=== PATIENT | female | born 1985 | race Hispanic/Latino ===

== ENCOUNTER 2021-04-21 23:27 | Emergency (ER) | payer SELFPAY ==
--- OUTSIDE RECORDS SUMMARY | 2021-04-21 23:31 | XMS REPORT | Continuity of Care Document ---
:1985 Author Organization [facility] t Address [address] [place] [address] Care Team Providers Name Role Phone Pcp, Does Not Have A Primary Care Physician Ebrahim LATHE MACHINIST Attending Clinician YASMIN Attending Clinician Unavailable Green LATHE MACHINIST Attending Clinician Cacace LATHE MACHINIST, J Attending Clinician Problems Condition Condition Condition Status Onset Resolution Last Treating Co mments Source Name Details Category Date Date Treatment Clinician Date Encounter Encounter Disease Active 2013-04 Overview: Univers for for -10 Formattin ity of routine routine 00:00: g of this [place] gynecologi gynecologi 00 note Me dical yazmin yazmin might be Branch examinatio examinatio different n n from the original. 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 Acid Acid Disease Active 2013-04 Univers reflux reflux 1-10 ity of 00:00: [place] 00 [facility] Branch Disease Active 2013-04 U nivers mood mood 0-07 ity of disturbanc disturbanc 00:[place] e [place] 00 Medical Branch Tubal Tubal Disease Active 2013-04 Univers ligation ligation 0-07 ity of status status 00:00: [place] 00 Medical Branch Wound Wound Disease Active Univers dehiscence dehiscence 9-19 it y of , , 00:[place] Morbid Morbid Disease Active Univers obesity obesity 5-10 ity of 00:00: [place] 00 [facility] Allergies, Adverse Reactions, Alerts Allergy Allergy Status Severity Reaction(s) Onset Inactive Treating Comm ents Source Name Type Date Date Clinician NO KNOWN Drug Active Univers ALLERGIE Class ity of S [facility] Social History Social Habit Start Date Stop Date Quantity Comments Source Exposure to Not sure [facility] SARS-CoV-2 [facility] (event) Branch Alcohol intake 2021-02-16 2021-02-16 Current University of 00:00:00 00:00:00 non-drinker of [facility] alcohol [place] (finding) Tobacco use and 2018-07-14 2018-07-14 Never used Universit y of exposure 00:00:00 00:00:00 [facility] Sex [birth year] Universit y of 00:00:00 00:00:00 [facility] Smoking Status Start Date Stop Date Source Never smoker [facility] Medications Ordered Filled Start Stop Current Ordering Indication Dosage Frequency Signature Comments Components Source Medication Medication Date Date Medication? Clinician (SIG) Name Name cetirizine 2020-04- Yes [id number] 10mg Take 1 Univers (ZYRTEC) 10 0-19 03- tablet by it y of mg tablet 00:00: 05:59 mouth [place] 00 :00 daily for Medical 30 days. Branch cetirizine 2020-04- Yes [id number] 10mg Take 1 Univers (ZYRTEC) 10 0- 11-28 tablet by it y of mg tablet 00:00: 05:59 mouth [place] 00 :00 daily for Medical 30 days. Branch cetirizine 2020-04- Yes [id number] 10mg Take 1 Univers (ZYRTEC) 10 0-28 11-28 tablet by it y of mg tablet 00:00: 05:59 mouth [place] 00 :00 daily for Medical 30 days. Branch codeine-gua 2020-04- Yes 10mL Take 10 mL Univers ifenesin 0-28 11-05 by mouth ity of 10-100 mg/5 00:00: 04:59 [place] 6 [place] mL oral 00 :00 (six) Medical solution hours as Branch needed for Cough for up to 7 days. Indication s: cough codeine-gua 2020-04- Yes 10mL Take 10 mL Univers ifenesin 0-28 11-05 by mouth ity of 10-100 mg/5 00:00: 04:59 every 6 [place] mL oral 00 :00 (six) Medical solution hours as Branch needed for Cough for up to 7 days. Indication s: cough NaCl 0.9% 2020- No 1000mL at 999 Uni vers (NS) bolus - 01-21 mL/hr, ity of infusion 19:45: 21:00 1,000 mL, Bob as 1,000 mL 00 :00 IV Medical Infusion, Branch ONCE, 1 dose, [facility] 05/12/20 at 1345, DREW benzonatate 0 Yes [id number] 100mg Take 1 Univers 100 mg 1-21 capsule by ity of capsule 00:00: mouth 3 [place] 00 (three) Medical times Branch daily as needed for Cough for up to 15 doses. methylPREDN 0 Yes [id number] Take by Univers ISolone -21 mouth ity of (MEDROL, 00:00: SEE-INSTRU Bob as ARCENIO,) 4 mg 00 CTIONS. Medica l tablets follow Branch package directions ibuprofen 0 Yes [id number] 800mg Take 1 U nivers 800 mg 1-21 tablet by ity of tablet 00:00: mouth [place] 00 every 8 Medical (eight) Branch hours as needed for Pain (scale 4-6) for up to 30 doses. benzonatate 0 Yes [id number] 100mg Take 1 Univers 100 mg 1-21 capsule by ity of capsule 00:00: mouth 3 [place] 00 (three) Medical times Branch daily as needed for Cough for up to 15 doses. methylPREDN 2020-0 Yes [id number] Take by Univers ISolone 1-21 mouth ity of (MEDROL, 00:00: SEE-INSTRU Bob as ARCENIO,) 4 mg 00 CTIONS. Medica l tablets follow Branch package directions ibuprofen 2020-0 Yes [id number] 800mg Take 1 U nivers 800 mg 1-21 tablet by ity of tablet 00:00: mouth [place] 00 every 8 Medical (eight) Branch hours as needed for Pain (scale 4-6) for up to 30 doses. benzonatate 0 Yes [id number] 100mg Take 1 Univers 100 mg 1-21 capsule by ity of capsule 00:00: mouth 3 [place] 00 (three) Medical times Branch daily as needed for Cough for up to 15 doses. methylPREDN 2020-0 Yes [id number] Take by Univers ISolone 1-21 mouth ity of (MEDROL, 00:00: SEE-INSTRU Bob as ARCENIO,) 4 mg 00 CTIONS. Medica l tablets follow Branch package directions ibuprofen 0 Yes [id number] 800mg Take 1 U nivers 800 mg 1-21 tablet by ity of tablet 00:00: mouth [place] 00 every 8 Medical (eight) Branch hours as needed for Pain (scale 4-6) for up to 30 doses. benzonatate Yes [id number] 100mg Take 1 Univers 100 mg 1-21 capsule by ity of capsule 00:00: mouth 3 [place] 00 (three) Medical times Branch daily as needed for Cough for up to 15 doses. methylPREDN 0 Yes [id number] Take by Univers ISolone 1-21 mouth ity of (MEDROL, 00:00: SEE-INSTRU Bbo as ARCENIO,) 4 mg 00 CTIONS. Medica l tablets follow Branch package directions ibuprofen 0 Yes [id number] 800mg Take 1 U nivers 800 mg 1-21 tablet by ity of tablet 00:00: mouth [place] 00 every 8 Medical (eight) Branch hours as needed for Pain (scale 4-6) for up to 30 doses. traMADOL Yes [id number] 50mg Take 1 Uni vers (ULTRAM) 50 3-25 tablet by ity of mg tablet 00:00: mouth [place] 00 every 6 Medical (six) Branch hours as needed for Pain (scale 7-10). ondansetron 2018- Yes [id number] 4mg Take 1 Univers (ZOFRAN) 4 3-25 tablet by ity of mg tablet 00:00: mouth [place] 00 every 8 Medical (eight) Branch hours as needed for Nausea and Vomiting (N/V). traMADOL 0 Yes [id number] 50mg Take 1 Uni vers (ULTRAM) 50 3-25 tablet by ity of mg tablet 00:00: mouth [place] 00 every 6 Medical (six) Branch hours as needed for Pain (scale 7-10). ondansetron 2019-0 Yes [id number] 4mg Take 1 Univers (ZOFRAN) 4 3-25 tablet by ity of mg tablet 00:00: mouth [place] 00 every 8 Medical (eight) Branch hours as needed for Nausea and Vomiting (N/V). traMADOL 2019-0 Yes [id number] 50mg Take 1 Uni vers (ULTRAM) 50 3-25 tablet by ity of mg tablet 00:00: mouth [place] 00 every 6 Medical (six) Branch hours as needed for Pain (scale 7-10). ondansetron 2018-0 Yes [id number] 4mg Take 1 Univers (ZOFRAN) 4 3-25 tablet by ity of mg tablet 00:00: mouth [place] 00 every 8 Medical (eight) Branch hours as needed for Nausea and Vomiting (N/V). traMADOL 2018-0 Yes [id number] 50mg Take 1 Uni vers (ULTRAM) 50 3-25 tablet by ity of mg tablet 00:00: mouth [place] 00 every 6 Medical (six) Branch hours as needed for Pain (scale 7-10). ondansetron 2018- Yes [id number] 4mg Take 1 Univers (ZOFRAN) 4 3-25 tablet by ity of mg tablet 00:00: mouth [place] 00 every 8 Medical (eight) Branch hours as needed for Nausea and Vomiting (N/V). meclizine 2018-0 Yes 25mg Take 1 Univer s 25 mg 1-16 tablet by ity of tablet 00:00: mouth [place] 00 every 6 Medical (six) Branch hours. meclizine 2018-0 Yes 25mg Take 1 Univer s 25 mg 1-16 tablet by ity of tablet 00:00: mouth [place] 00 every 6 Medical (six) Branch hours. meclizine 2018-0 Yes 25mg Take 1 Univer s 25 mg 1-16 tablet by ity of tablet 00:00: mouth [place] 00 every 6 Medical (six) Branch hours. meclizine 2018-0 Yes 25mg Take 1 Univer s 25 mg 1-16 tablet by ity of tablet 00:00: mouth [place] 00 every 6 Medical (six) Branch hours. traMADOL 2014-0 Yes 50mg Take 1 Tab Uni vers (ULTRAM) 50 9-19 by mouth ity of mg tablet 00:00: every 6 [place] 00 (six) Medical hours as Branch needed for Pain (scale 4-6). traMADOL 2014-0 Yes 50mg Take 1 Tab Uni vers (ULTRAM) 50 9-19 by mouth ity of mg tablet 00:00: every 6 [place] 00 (six) Medical hours as Branch needed for Pain (scale 4-6). traMADOL 2015-0 Yes 50mg Take 1 Tab Uni vers (ULTRAM) 50 9-19 by mouth ity of mg tablet 00:00: every 6 [place] 00 (six) Medical hours as Branch needed for Pain (scale 4-6). traMADOL 2014-0 Yes 50mg Take 1 Tab Uni vers (ULTRAM) 50 9-19 by mouth ity of mg tablet 00:00: every 6 [place] 00 (six) Medical hours as Branch needed for Pain (scale 4-6). Immunizations Ordered Filled Immunization Date Status Comments [facility] e Immunization Name Name MMR 2014-01-04 Completed University of 00:00:00 [facility] MMR 2014-01-04 Completed University of 00:00:00 [facility] MMR 2014-01-04 Completed University of 00:00:00 [facility] MMR 2014-01-04 Completed University of 00:00:00 [facility] Rho (d) Immune 2014-01-03 Completed University of Globulin 00:00:00 [facility] Rho (d) Immune 2014-01-03 Completed University of Globulin 00:00:00 [facility] Rho (d) Immune 2014-01-03 Completed University of Globulin 00:00:00 [facility] Rho (d) Immune 2014-01-03 Completed University of Globulin 00:00:00 [facility] TDAP 2013-10-22 Completed University of 00:00:00 [facility] TDAP 2013-10-22 Completed University of 00:00:00 [facility] TDAP 2013-10-22 Completed University of 00:00:00 [facility] TDAP 2013-10-22 Completed University of 00:00:00 [facility] Influenza Virus 2013-05-29 Completed Universit y of Vaccine (3+ yrs) 00:00:00 [facility] Influenza Virus 2013-05-29 Completed Universit y of Vaccine (3+ yrs) 00:00:00 [facility] Influenza Virus 2013-05-29 Completed Universit y of Vaccine (3+ yrs) 00:00:00 [facility] Influenza Virus 2013-05-29 Completed Universit y of Vaccine (3+ yrs) 00:00:00 [facility] TDAP 2012-08-29 Completed University of 00:00:00 [facility] TDAP 2012-08-29 Completed University of 00:00:00 [facility] TDAP 2012-08-29 Completed University of 00:00:00 [facility] TDAP 2012-08-29 Completed University of 00:00:00 [facility] Influenza Virus 2012-02-03 Completed Universit y of Vaccine 00:00:00 [facility] MMR 2012-02-03 Completed University of 00:00:00 [facility] Influenza Virus 2012-02-03 Completed Universit y of Vaccine 00:00:00 [facility] MMR 2012-02-03 Completed University of 00:00:00 [facility] Influenza Virus 2012-02-03 Completed Universit y of Vaccine 00:00:00 [facility] MMR 2012-02-03 Completed University of 00:00:00 [facility] Influenza Virus 2012-02-03 Completed Universit y of Vaccine 00:00:00 [facility] MMR 2012-02-03 Completed University of 00:00:00 [facility] Rho (d) Immune 2012-02-01 Completed University of Globulin 00:00:00 [facility] Rho (d) Immune 2012-02-01 Completed University of Globulin 00:00:00 [facility] Rho (d) Immune 2012-02-01 Completed University of Globulin 00:00:00 [facility] Rho (d) Immune 2012-02-01 Completed University of Globulin 00:00:00 [facility] Vital Signs Vital Name Observation Time Observation Value Comments Source Systolic blood 2021-02-17 01:22:00 122 mm[Hg] Univer sity of pressure [facility] Diastolic blood 2021-02-17 01:22:00 82 mm[Hg] Unive rsity of pressure [facility] Heart rate 2021-02-17 01:22:00 84 /min [facility] Body temperature 2021-02-17 01:22:00 37 Jesica [facility] Res[facility] 2021-02-17 01:22:00 18 /min [facility] Body height 2021-02-17 01:22:00 154.9 cm [facility] Body weight 2021-02-17 01:22:00 127.007 kg [facility] BMI 2021-02-17 01:22:00 52.91 kg/m2 [facility] Oxygen saturation in 2021-02-17 01:22:00 97 /min [facility] Arterial blood by [facility] Pulse oximetry Branch Systolic blood 2020-05-12 22:30:00 127 mm[Hg] Univer sity of pressure [facility] Diastolic blood 2020-05-12 22:30:00 62 mm[Hg] [facility] Heart rate 2020-05-12 22:30:00 68 /min [facility] Respiratory rate 2020-05-12 22:30:00 18 /min [facility] Oxygen saturation in 2020-05-12 22:30:00 100 /min [facility] Arterial blood by [facility] Pulse oximetry [place] Body temperature 2020-05-12 19:01:00 37.28 Jesica [facility] Body weight 2020-05-12 19:01:00 127.007 kg [facility] BMI 2020-05-12 19:01:00 52.91 kg/m2 [facility] Procedures Procedure Date / Time Performed Performing Clinician Sour e XR CHEST 2 2021-02-17 01:40:40 [facility] o f [facility] POCT TEST 2020-05-12 20:28:00 Dimas Lora [facility] XR CHEST 1 2020-05-12 20:27:54 Adriana Bowling [facility] TROPONIN I 2020-05-12 20:22:00 Adriana Bowling [facility] HEPATIC FUNCTION PANEL 2020-05-12 20:22:00 Adriana Bowling [facility] ([id number]) [facility] (ALB,T.PRO,BILI T,BU/BC,ALT,AST,ALK PHOS) BASIC METABOLIC PANEL 2020-05-12 20:22:00 Adriana Bowling [facility] (NA, K, CL, CO2, Medical Branch GLUCOSE, BUN, CREATININE, CA) CBC WITH DIFF 2020-05-12 20:22:00 Adriana Bowling [facility] URINALYSIS 2020-05-12 20:22:00 Adriana Bowling [facility] CONSENT/REFUSAL FOR 2020-05-12 18:46:55 [facility] Unassigned, [facility] AND Name [facility] TREATMENT NOTICE OF PRIVACY 2020-05-12 18:46:37 Doctor Unassigned, No Univ [facility] PRACTICES Name Medical Branch Encounters Start End Encounter Admission Attending Care Care Encounter Source Date/Time Date/Time Type Type Clinicians Facility Department ID 2021-02-18 Emergency [facility] [id number] Univers 18:36:38 ity [facility] 2021-03-09 2021-03-09 Refill Bobby [facility] [id number] Univers 00:00:00 00:00:00 [facility] [id number] it y of [place] [id number] Bob as CLEMENTE?BLEA [id number] [facility] [address] MEDICAL OFFICE BUILDING 2021-02-16 2021-02-16 [facility] [id number] Univers 20:29:09 23:59:00 Encounter Ranbettie HEALTH [id number] ity of [place] [id number] Bob as CLEMENTE?BLEA [id number] [facility] [address] MEDICAL OFFICE BUILDING 2021-02-16 2021-02-16 Outpatient R YASMIN [facility] [id number] Univers 20:20:00 20:54:13 HOLLY ity [facility] 2021-02-16 2021-02-16 Urgent Zhanna Rosales [facility] [id number] Univers 20:19:38 20:54:13 Care Yasmin Holly HEALTH [id number] ity of [place] [id number] Bob as CLEMENTE?BLEA [id number] [address] MEDICAL OFFICE BUILDING 2021-02-16 2021-02-16 Outpatient R [facility] [id number] Univers 20:20:00 20:20:[id number] 2020-[facility]-12 2020-05-12 Emergency Tawnya, [facility] [id number] [facility] 13:13:00 16:54:00 Adriana Mendez [id number] [facility] [id number] [facility] [id number] [place] [id number] [place] Results Test Description Test Time Test Comments Results Result Comments Source Troponin I 2020-05-12 21:11:00 Test Item Value Reference Range Interpretation Comme nts TROPONIN I (test code = <0.012 See_Comment [Au tomated message] The [id number]) system which ge nerated this result tra nsmitted reference range : <=0.034 ng/mL. The refe rence range was not u sed to interpret this result as normal/abnormal . ANJALI (test code = ANJALI) Equal or Less than 0.034 ng/ml---Normal ?Note: Cardiac troponin begins to rise 3-4 hours after the onset of ischemia. Repeat in 4-6 hours if the sample was drawn within 3-4 hours of the onset of the symptom and found normal. Between 0.035 and 0.120 ng/mL--- Borderline. Questionable myocardial injury or necrosis ? ?Note: Serial measurement may be necessary to confirm or exclude the diagnosis of myocardial injury or necrosis; Clinical correlation (symptoms, EKGs, imaging studies, and others) required; Repeat in 4-6 hours if clinically indicated. ? Equal or Higher than 0.121 ng/mL---Abnormal. Myocardial Injury or Necrosis Likely ? Biotin has been reported to cause a negative bias, interpret results relative to patient's use of biotin. ? Lab Interpretation (test Normal code = 75446-7) [facility]00 Test Item Value Reference Range Interpretation Comments APPEARANCE (test code = Hazy Clear A 7452013358) COLOR (test code = Yellow Yellow 7210084555) PH (test code = 4.8-8.0 1833462641) SP GRAVITY (test code = 1.003-1.030 7158305820) GLU U QUAL (test code = Normal Normal 8904662523) BLOOD (test code = Negative Negative 8042849047) KETONES (test code = Negative Negative 1707446443) PROTEIN (test code = Negative Negative 2887-8) UROBILIN (test code = Normal Normal 3987141567) BILIRUBIN (test code = Negative Negative 1838944512) NITRITE (test code = Negative Negative 6989248677) LEUK ROLF (test code = Negative Negative 5314379673) RBC/HPF (test code = See_Comment [Autom ated message] 9579269788) The system [employer] generated this result transmitted ref erence range: 0 - 3 HP F. The reference range was not used to int erpret this result as normal/abnormal . WBC/HPF (test code = <1 See_Comment [Autom ated message] 1710314338) The system [employer] generated this result transmitted ref erence range: 0 - 5 HP F. The reference range was not used to int erpret this result as normal/abnormal . BACTERIA (test code = Negative Negative 9722346305) MUCOUS (test code = Slight Negative LPF A 1474667875) SQ EPITH (test code = HPF 7420308271) Lab Interpretation (test Abnormal code = 06715-2) [facility] (NA, K, CL, CO2, GLUCOSE, BUN, CREATININE, CA)2020-05-12 20:49:00 Test Item Value Reference Range Interpretation Comments NA (test code = 138 mmol/L 135-145 4547809018) K (test code = 4.0 mmol/L 3.5-5 9608406245) CL (test code = 104 mmol/L 98-108 7995968566) CO2 TOTAL (test code = 26 mmol/L 23-31 4076249376) AGAP (test code = 2-16 4414059439) BUN (test code = 13 mg/dL 7-23 5809440571) GLUCOSE (test code = 86 mg/dL 70-110 1249143509) CREATININE (test code 0.51 mg/dL 0.5-1.04 = 1031816891) CALCIUM (test code = 8.9 mg/dL 8.6-10.6 9488390201) eGFR Calculation mL/min/1.73m2 (Non-) (test code = 0391091696) eGFR Calculation mL/min/1.73m2 () (test code = 1834986434) ANJALI (test code = ANJALI) Association of Glomerular Filtration Rate (GFR) and Staging of Kidney Disease* + -+ + ---+| GFR (mL/min/1.73 m2) ?| With Kidney Damage ?| ?Without Kidney Damage+ -------+ ------+ ---------+| ?>90 ?| ?Stage one ?| ? Normal ?+ --+ -+ ----+| ?60-89 ?| ?Stage two ?| ? Decreased GFR ? + -+ + ---+| ?30-59 ?| ?Stage three ?| ? Stage three ? + -+ + ---+| ?15-29 ?| ?Stage four ? | ? Stage four ?+ --+ -+ ----+| ?<15 (or dialysis) ? ?| ?Stage five ? | ? Stage five ?+ --+ -+ ----+ *Each stage assumes the associated GFR level has been in effect for at least three months. ?Stages 1 to 5, with or without kidney disease, indicate chronic kidney disease. Notes: Determination of stages one and two (with eGFR >59mL/min/1.73 m2) requires estimation of kidney damage for at least three months as defined by structural or functional abnormalities of the kidney, manifested by either:Pathological abnormalities or Markers of kidney damage (including abnormalities in the composition of the blood or urine or abnormalities in imaging tests). [facility] (ALB, T.PRO, BILI T, BU/BC, ALT, AST, ALK PHOS)2020-05-12 20:49:00 Test Item Value Reference Range Interpretation Comments TOTAL BILI (test code = 8142611273) 0.5 mg/dL 0.1-1.1 BILI UNCON (test code = 5104395902) 0.4 mg/dL 0.1-1.1 BILI CONJ (test code = 4598090265) 0.0 mg/dL 0-0.3 T PROTEIN (test code = 5225254693) 7.7 g/dL 6.3-8.2 ALBUMIN (test code = 4908083516) 4.4 g/dL 3.5-5 ALK PHOS (test code = 0009553421) 80 U/L 34-122 ALTv (test code = 1742-6) 20 U/L 5-35 AST(SGOT) (test code = 4461887068) 26 U/L 13-40 Lab Interpretation (test code = Normal 49059-9) [facility] with [id number] 20:48:00 Test Item Value Reference Range Interpretation Comments WBC (test code = See_Comment [Automated 0990-2) message] The sy stem which generated this result transmitted reference range : 4.30 - 11.10 10*3/?L. The reference range was not used to interpret this result as normal/abnormal . RBC (test code = See_Comment [Automated 789-8) message] The sy stem which generated this result transmitted reference range : 3.93 - 5.25 10*6/?L. The reference range was not used to interpret this result as normal/abnormal . HGB (test code = 11.7 g/dL 11.6-15 718-7) HCT (test code = 37.4 % 35.7-45.2 4544-3) MCV (test code = 85.4 fL 80.6-95.5 787-2) MCH (test code = 26.7 pg 25.9-32.8 785-6) MCHC (test code = 31.3 g/dL 31.6-35.1 L 786-4) RDW-SD (test code = 46.5 fL 39-49.9 49601-6) RDW-CV (test code = 15.0 % 12-15.5 788-0) PLT (test code = See_Comment [Automated 777-3) message] The sy stem which generated this result transmitted reference range : 166 - 358 10*3/ ?L. The reference r sofía was not used to interpret this result as normal/abnormal . MPV (test code = 10.9 fL 9.5-12.9 16235-5) NRBC/100 WBC (test See_Comment [Automat ed code = 4802173988) message] The system which generated this result transmitted reference range : 0.0 - 10.0 /100 WBCs. The refer ence range was not u sed to interpret th is result as normal/abnormal . NRBC x10^3 (test code <0.01 See_Comment [Auto mated = 9071936394) message] The s ystem which generated this result transmitted reference range : 10*3/?L. The reference range was not used to interpret this result as normal/abnormal . GRAN MAT (NEUT) % 66.6 % (test code = 770-8) IMM GRAN % (test code 0.60 % = 0901835322) LYMPH % (test code = 23.5 % 736-9) MONO % (test code = 6.4 % 5905-5) EOS % (test code = 2.3 % 713-8) BASO % (test code = 0.6 % 706-2) GRAN MAT x10^3(ANC) 5.51 10*3/uL 1.88-7.09 (test code = 1312553607) IMM GRAN x10^3 (test 0.05 10*3/uL 0-0.06 code = 9136044446) LYMPH x10^3 (test code 1.94 10*3/uL 1.32-3.29 = 731-0) MONO x10^3 (test code 0.53 10*3/uL 0.33-0.92 = 742-7) EOS x10^3 (test code = 0.19 10*3/uL 0.03-0.39 711-2) BASO x10^3 (test code 0.05 10*3/uL 0.01-0.07 = 704-7) Lab Interpretation Abnormal (test code = 75001-3) [facility] 1 [id number] 20:31:35HISTORY: Chest pain. TECHNIQUE: Portable AP view of the chest is obtained. Comparison is madewith 01/15/2014 study. FINDINGS: No acute pneumonia. No pneumothorax or pleural effusion orpulmonary congestion detected. Cardiac size is within normal limits. CONCLUSIONS: No signs of acute cardiopulmonary disease.[facility], Radiant Results Inft User - 05/12/2020 2:32 PM CSTHISTORY: Chest pain.TECHNIQUE: Portable AP view of the chest is obtained. Comparison is madewith 01/15/2014 study.FINDINGS: No acute pneumonia. No pneumothorax or pleural effusion orpulmonary congestion detected. Cardiac size is within normal limits. CONCLUSIONS: No signs of acute cardiopulmonary disease.[id number] 20:28:00 Test Item Value Reference Range Interpretation Comments POCT PREG (test code = 1605) Negative On board controls acceptable with C present Line (test code = 3574) Lab Interpretation (test code = Normal 81244-0) [facility]"
[2021-04-22] MEDS ORDERED: NA CHLORIDE 0.9% 1,000 ML ONE (00:17)
[2021-04-22] MEDS ORDERED: ADENOSINE 6 MG/ 2ML VIAL IV ONE (00:17)
[2021-04-22 00:34] LABS: Absolute Lymphocytes (CBC) 2.5 K/uL (0.7-4.9); Hematocrit 37.7 % (36.0-45.0); Lymphocytes % 30.4 % (15.3-44.8); MPV 8.6 fL (7.6-11.3); RBC Red Blood Cell Count 4.44 M/uL (3.86-4.86)
[2021-04-22 00:53] LABS: Protime INR 0.97
[2021-04-22 00:54] LABS: ALT/SGPT 35 U/L (12-78); AST/SGOT 24 U/L (15-37); Albumin 3.3 g/dL (3.4-5.0); Alkaline Phosphatase 82 U/L (45-117); BUN Blood Urea Nitrogen 19 mg/dL (7-18); Bicarbonate 22 mmol/L (21-32); Bilirubin Direct < 0.1 mg/dL (0-0.2); Bilirubin Total 0.2 mg/dL (0.2-1.0); Glucose Level 103 mg/dL (74-106); Magnesium 2.1 mg/dL (1.8-2.4); NT PRO-BNP 60 pg/mL (<125); Potassium 3.2 mmol/L (3.5-5.1); Protein, Total 7.4 g/dL (6.4-8.2); Sodium Level 143 mmol/L (136-145)
[2021-04-22 01:52] LABS: Urine Blood 2+ (Negative); Urine Glucose Negative (Negative); Urine Protein Negative (Negative); Urine Specific Gravity 1.015 (1.005-1.030); Urine pH 5.5 (5.0-7.0)
[2021-04-22 02:30] LABS: Barbiturates NEGATIVE (NEGATIVE); Benzodiazepines NEGATIVE (NEGATIVE); Cocaine NEGATIVE (NEGATIVE); METHAMPHETAM NEGATIVE (NEGATIVE); Methadone NEGATIVE (NEGATIVE); Opiates NEGATIVE (NEGATIVE); Phencyclidine NEGATIVE (NEGATIVE); THC Cannibis NEGATIVE (NEGATIVE)
[2021-04-22 03:14] LABS: Troponin (Emerg Dept Use Only) 0.04 ng/mL (0.0-0.045)
--- NOTE | 2021-04-22 04:13 | ER ---
Nurse's Notes [facility] Name: Samra Marina Age: 35 yrs Sex: Female : 1985 Arrival Date: 04/21/2021 Time: 23:30 Bed 16 Private MD: Diagnosis: Supraventricular tachycardia Presentation: 04/21 23:58 Chief complaint: Patient states: she is having chest pain and shortness of breath. bb Coronavirus screen: At this time, the client does not indicate any symptoms associated with coronavirus-19. Ebola Screen: No symptoms or risks identified at this time. 23:58 Method Of Arrival: Ambulatory bb 04/22 00:15 Initial Sepsis Screen: Does the patient meet any 2 criteria? RR > 20 per min. HR > 90 bb bpm. Does the patient have a suspected source of infection? No. Patient's initial sepsis screen is negative. Risk Assessment: Do you want to hurt yourself or someone else? Patient reports no desire to harm self or others. Onset of symptoms was April 21, 2021. 00:15 Acuity: DARCIE 1 bb Triage Assessment: 01:04 General: Appears distressed, obese, Behavior is cooperative, anxious. Pain: Complains bb of pain in chest. Neuro: Level of Consciousness is awake, alert, obeys commands, Oriented to person, place, time, situation. Cardiovascular: Rhythm is SVT. Respiratory: Respiratory effort is shallow, Respiratory pattern is tachypnea. GI: Abdomen is obese. Derm: Skin is pink, warm \T\ dry. Musculoskeletal: Circulation, motion, and sensation intact. 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 - Social history:: Smoking status: Patient denies any tobacco usage or history of. Patient uses alcohol, occasionally. Patient/guardian denies using street drugs. Screenin:25 Abuse screen: Denies threats or abuse. Nutritional screening: No deficits noted. bb Tuberculosis screening: No symptoms or risk factors identified. Fall Risk None identified. Assessment: 00:15 General: Appears distressed, uncomfortable, obese, Behavior is cooperative, anxious. bb Pain: Complains of pain in chest Pain does not radiate. Pain began suddenly. Neuro: Level of Consciousness is awake, alert, obeys commands, Oriented to person, place, time, situation. Cardiovascular: Rhythm is SVT. Respiratory: Respiratory effort is shallow, Respiratory pattern is tachypnea. GI: No signs and/or symptoms were reported involving the gastrointestinal system. Derm: Skin is pink, warm \T\ dry. Musculoskeletal: Circulation, motion, and sensation intact. 02:41 Reassessment: PT SEEN CALM AND AND WITHOUT PAIN Patient states feeling better. Patient kd3 states symptoms have improved. 04:37 Reassessment: Patient denies pain at this time. Patient states feeling better. Patient kd3 states symptoms have improved. Vital Signs: 00:15 BP 104 / 55; Pulse 180; Resp 28 S; Temp 98.5(O); Pulse Ox 98% on R/A; Weight 129.27 kg bb (R); Height 5 ft. 1 in. (154.94 cm) (R); Pain 10/10; 00:25 BP 114 / 60; Pulse 103; Resp 26 S; Pulse Ox 98% on R/A; bb 02:44 BP 125 / 72; Pulse 112; Resp 17; Pulse Ox 98% on R/A; kd3 04:37 BP 102 / 75; Pulse 98; Resp 16; Pulse Ox 100% on R/A; kd3 00:15 Body Mass Index 53.85 (129.27 kg, 154.94 cm) bb ED Course: 04/21 23:30 Patient arrived in ED. [id number] 04/22 00:02 Yoselin Quinn FNP-C is PHCP. kb 00:02 Rodney Funez MD is Attending Physician. kb 00:15 Arm band placed on Patient placed in an exam room, on a stretcher, on keg header, bb on pulse oximetry, Danielle Quinn LAST TURNER at bedside for cardioversion of pt. Pt verbalized agreement of procedure. 00:15 Assist provider with cardioversion Set up for procedure. Monitored with cardiac bb monitor, pulse ox, defibrillator and bedside monitor. with adenosine x 1. Inserted saline lock: 18 gauge in left antecubital area, using aseptic technique. Blood collected. by ED staff. 00:25 Patient has correct armband on for positive identification. Call light in reach. Side bb rails up X2. Adult w/ patient. slot floor person on. Pulse ox on. NIBP on. 00:40 XRAY Chest (1 view) In Process Unspecified. EDMS 01:02 Louisa Toney, RN is Primary Nurse. kd3 01:04 Triage completed. bb 02:05 CT Chest For PE Angio In Process Unspecified. EDMS 02:20 UDS Sent. ds4 02:41 Patient maintains SpO2 saturation greater than 95% on room air. kd3 04:12 Dmitry Gibbs MD is Referral Physician. mh7 04:38 IV discontinued. kd3 Administered Medications: 00:21 Drug: Adenosine 6 mg Route: IVP; Site: left antecubital; bb 00:21 Drug: NS 0.9% 1000 ml Route: IV; Rate: 1000 ml; Site: left antecubital; bb 02:19 Drug: Potassium Chloride 40 mEq Route: PO; kd3 Outcome: 04:12 Discharge ordered by MD. 7 04:37 Discharged to home ambulatory. kd3 04:37 Condition: stable 04:37 Discharge instructions given to patient, Instructed on discharge instructions, follow up and referral plans. Demonstrated understanding of instructions, follow-up care. 04:46 Patient left the ED. kd3 Signatures: Dispatcher [employer] EDMS Yoselin Quinn, ACCOUNT DEVELOPMENT EXECUTIVE-C ACCOUNT DEVELOPMENT EXECUTIVE-Xochilt Thomas, RN RN Jean Carlos Orozco ds4 Rodney Funez MD MD Cortney Delgadillo6 Louisa Toney, RN RN kd3
--- NOTE | 2021-04-22 04:13 | EDPHYS ---
Physician Documentation [facility] Name: Samra Marina Age: 35 yrs Sex: Female : 1985 Arrival Date: 04/21/2021 Time: 23:30 Bed 16 Private MD: ED Physician Rodney Funez HPI: 04/22 00:49 This 35 yrs old Female presents to ER via Unassigned with complaints of Chest kb Pain, Shortness Of Breath. 00:49 The patient or guardian reports chest pain that is located primarily in the anterior kb chest wall, left. The pain does not radiate. Associated signs and symptoms: Pertinent positives: shortness of breath. The chest pain is described as aching. Duration: The patient or guardian reports a single episode. Modifying factors: The symptoms are alleviated by nothing. the symptoms are aggravated by nothing. Severity of pain: At its worst the pain was moderate in the emergency department the pain is unchanged. The patient has not experienced similar symptoms in the past. The patient has not recently seen a physician. 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 - Social history:: Smoking status: Patient denies any tobacco usage or history of. Patient uses alcohol, occasionally. Patient/guardian denies using street drugs. ROS: 00:49 Constitutional: Negative for fever, chills, and weight loss. kb 00:49 Cardiovascular: Positive for chest pain, Negative for edema, orthopnea, palpitations, paroxysmal nocturnal dyspnea. 00:49 Respiratory: Positive for shortness of breath. 00:49 All other systems are negative. Exam: 00:49 Constitutional: This is a well developed, well nourished patient who is awake, alert, kb and in no acute distress. Head/Face: Normocephalic, atraumatic. ENT: Moist Mucous membranes Respiratory: Respirations even and unlabored. No increased work of breathing. Talking in full sentences Skin: Warm, dry with normal turgor. Normal color. MS/ Extremity: Pulses equal, no cyanosis. Neurovascular intact. Full, normal range of motion. Neuro: Awake and alert, GCS 15, oriented to person, place, time, and situation. Moves all extremities. Normal gait. Psych: Awake, alert, with orientation to person, place and time. Behavior, mood, and affect are within normal limits. 00:49 Cardiovascular: Rate: tachycardic, actual rate is 188 bpm, Rhythm: regular, Pulses: no pulse deficits are appreciated, Heart sounds: normal. Vital Signs: 00:15 BP 104 / 55; Pulse 180; Resp 28 S; Temp 98.5(O); Pulse Ox 98% on R/A; Weight 129.27 kg bb (R); Height 5 ft. 1 in. (154.94 cm) (R); Pain 10/10; 00:25 BP 114 / 60; Pulse 103; Resp 26 S; Pulse Ox 98% on R/A; bb 02:44 BP 125 / 72; Pulse 112; Resp 17; Pulse Ox 98% on R/A; kd3 04:37 BP 102 / 75; Pulse 98; Resp 16; Pulse Ox 100% on R/A; kd3 00:15 Body Mass Index 53.85 (129.27 kg, 154.94 cm) bb MDM: 00:02 Patient medically screened. kb 00:37 Data reviewed: vital signs, nurses notes. Data interpreted: Pulse oximetry: on room air kb is 100 %. Interpretation: normal. ED course: SVT with a rate of 188, 6mg adenosine given IV and pt converted to ST with a rate of 104. 02:44 Transition of care: After a detail discussion of the patient's case, care is kb transferred to Rodney Funez MD. 04:10 Differential diagnosis: abnormal EKG, acute myocardial infarction, acute pericarditis, mh7 anxiety, coronary artery disease chest wall pain, congestive heart failure costochondritis, gastroesophageal reflux disease (GERD), pulmonary embolus. HEART Score: History: Slightly Suspicious (0), ECG: Non specific repolarization disturbance / LBTB / PM (1), Age: < or = 45 years (0), Risk Factors: No Risk Factors Known (0), Troponin: < or = 1 x Normal Limit (0), Total Score = 1. Counseling: I had a detailed discussion with the patient and/or guardian regarding: the historical points, exam findings, and any diagnostic results supporting the discharge/admit diagnosis, lab results, radiology results, the need for outpatient follow up, to return to the emergency department if symptoms worsen or persist or if there are any questions or concerns that arise at home. Response to treatment: the patient's symptoms have resolved after treatment, the patient's blood pressure is in an acceptable range, mental status has returned to baseline, the patient no longer shows bradycardia, the patient is not short of breath, the patient is not tachycardic, the patient's pain is gone, the patient's temperature has normalized, the patient is now symptom free, patient is well hydrated. 04/22 00:10 Order name: Basic Metabolic Panel kb 04/22 00:10 Order name: CBC with Diff; Complete Time: 00:38 kb 04/22 00:10 Order name: LFT's; Complete Time: 03:25 kb 04/22 00:10 Order name: Magnesium; Complete Time: 03:25 kb 04/22 00:10 Order name: NT PRO-BNP; Complete Time: 03:25 kb 04/22 00:10 Order name: PT-INR; Complete Time: 00:59 kb 04/22 00:10 Order name: Troponin (emerg Dept Use Only); Complete Time: 03:25 kb 04/22 00:10 Order name: XRAY Chest (1 view) kb 04/22 00:10 Order name: D-Dimer; Complete Time: 00:59 kb 04/22 00:11 Order name: Basic Metabolic Panel; Complete Time: 03:25 EDMS 04/22 00:32 Order name: UDS; Complete Time: 02:32 kb 04/22 00:32 Order name: TSH; Complete Time: 01:17 kb 04/22 01:00 Order name: CT Chest For PE Angio kb 04/22 01:51 Order name: Urine Dipstick-Ancillary; Complete Time: 01:55 EDMS 04/22 00:10 Order name: EKG; Complete Time: 00:11 kb 04/22 00:10 Order name: Cardiac monitoring; Complete Time: 00:23 kb 04/22 00:10 Order name: EKG - Nurse/Tech; Complete Time: 00:23 kb 04/22 00:10 Order name: IV Saline Lock; Complete Time: 00:23 kb 04/22 00:10 Order name: Labs collected and sent; Complete Time: 00:24 kb 04/22 00:10 Order name: O2 Per Protocol; Complete Time: 00:24 kb 04/22 00:10 Order name: O2 Sat Monitoring; Complete Time: 00:24 kb 04/22 00:32 Order name: Urine Dipstick-Ancillary (obtain specimen); Complete Time: 02:02 kb Administered Medications: 00:21 Drug: Adenosine 6 mg Route: IVP; Site: left antecubital; bb 00:21 Drug: NS 0.9% 1000 ml Route: IV; Rate: 1000 ml; Site: left antecubital; bb 02:19 Drug: Potassium Chloride 40 mEq Route: PO; kd3 Disposition: 06:42 Co-signature as Attending Physician, Rodney Funez MD. [facility] Disposition Summary: 04/22/21 04:12 Discharge Ordered Location: Home [facility] Problem: new [facility] Symptoms: are resolved [facility] Condition: Stable [facility] Diagnosis - Supraventricular tachycardia [facility] Followup: [facility] - With: Private Physician - When: 1 - 2 days - Reason: Worsening of condition, Recheck today's complaints, Continuance of care, Re-evaluation by your physician Followup: [facility] - With: Dmitry Gibbs MD - When: 1 - 2 days - Reason: Worsening of condition, Recheck today's complaints Discharge Instructions: - Discharge Summary Sheet [facility] - Supraventricular Tachycardia, Adult, [id number] [facility] Forms: - Medication Reconciliation Form [facility] - Thank You Letter [facility] - Antibiotic Education [facility] - Prescription Opioid Use [facility] Signatures: Dispatcher [employer] Yoselin Becerra, ELAINE-C ELAINE-Xochilt Thomas, RN RN Rodney Freire MD MD Louisa Castillo RN RN kd3
[2021-04-22 04:54] VITALS: TEMP 98.5
[2021-04-22 05:00] VITALS: BP 102/75; O2SAT 100
--- NOTE | 2021-04-22 08:19 | RAD REPORT ---
EXAM DESCRIPTION: RAD - Chest Single View - 04/22/2021 12:39 am CLINICAL HISTORY: CHEST PAIN COMPARISON: April 2013 TECHNIQUE: AP portable chest image was obtained 04/22/2021 12:39 am . FINDINGS: No focal mass or consolidation. No diffuse pulmonary edema pattern seen. No significant fa ilure or volume overload findings are identifiable. Resuscitation paddle overlies the upper right [address]. Portable technique, shallow inspiration and large body habitus accentuate the heart, vasculature and lung markings. Heart and vasculature are normal. No measurable pleural effusion and no pneumothorax. No acute bony abnormality seen. No acute aortic findings suspected. IMPRESSION: Limited portable study without acute cardiopulmonary finding.
--- NOTE | 2021-04-22 18:05 | RAD REPORT ---
EXAM DESCRIPTION: CT - Chest For Pe Angio - 04/22/2021 6:46 am CLINICAL HISTORY: The patient is 35 years old and is Female; CHEST PAIN TECHNIQUE: Axial computed tomographic angiography images of the chest with intravenous contrast. S agittal and coronal reformatted images were created and reviewed. This CT exam was performed using one or more of the following dose reduction techniques: automated exposure control, adjustment of t he mA and/or kV according to patient size, and/or use of iterative reconstruction technique. MIP reconstructed images were created and reviewed. COMPARISON: No relevant prior studies available. FINDINGS: PULMONARY ARTERIES: The main pulmonary arteries and proximal segmental branches opacify normally and are without filling defect. AORTA: No acute findings. No thoracic aortic aneurysm. LUNGS: Unremarkable. No mass. No consolidation. PLEURAL SPACE: Unremarkable. No significant effusion. No pneumothorax. HEART: Unremarkable. No cardiomegaly. No significant pericardial effusion. No evidence of R V dysfunction. BONES/JOINTS: No acute fracture. No dislocation. SOFT TISSUES: Unremarkable. LYMPH NODES: Unremarkable. No enlarged lymph nodes. LIVER: The liver is enlarged and diffusely fatty. IMPRESSION: The main pulmonary arteries and proximal segmental branches opacify normally and are wit hout filling defect. However, the remainder of the pulmonary vessels are not adequately evaluated s econdary to contrast timing. Electronically signed by: Keysha Monsivais MD 04/22/2021 2:49 AM GAS APPLIANCE MECHANIC Due to temporary technical issues with the PACS/Fluency reporting system, reports are being signed by the in house radiologists without review as a courtesy to insure prompt reporting. The interpreting radiologist is fully responsible for the content of the report.
== END 2021-04-22 04:46 | disposition home or self-care (01) ==
LOC: ER 23:27
DX: I47.1 Supraventricular tachycardia (principal)
CPT/HCPCS: 36415; 71045; 71275; 80048; 80076; 80307; 81003; 83735; 83880; 84443; 84484; 85025; 85379; 85610; 92960; 93005; 96374; 99291; 99292; J0153; J7030; Q9967

== ENCOUNTER 2022-05-18 17:00 | Emergency (ER) | payer SELFPAY ==
--- OUTSIDE RECORDS SUMMARY | 2022-05-18 17:06 | XMS REPORT | Continuity of Care Document ---
:1985 Author Organization [facility] t Address [address] [place] [address] Care Team Providers Name Role Phone Pcp, Patient Does Not Have A Primary Care Physician [id number] Zhanna Ulloa Attending Clinician HOLLY HOFFMAN Attending Clinician Unavailable Holly Jimenez Attending Clinician Adriana Woo Attending Clinician Problems Condition Condition Condition Status Onset Resolution Last Treating Co mments Source Name Details Category Date Date Treatment Clinician Date Encounter Encounter Disease Active 2013-04 Overview: Univers for for 1-10 Formattin ity of routine routine 00:00: g of this [place] gynecologi gynecologi 00 note Me dical yazmin yazmin might be Branch examinatio examinatio different n n from the original. 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 Acid Acid Disease Active 2013-04 Univers reflux reflux -10 ity of 00:00: [place] 00 Medical Branch Disease Active 2013-04 U nivers mood mood 0-07 ity [place] disturb[place] disturb[place] Tubal Tubal Disease Active 2013-04 Univers ligation ligation 0-07 ity of status status 00:00: [place] [address] Medical Branch Wound Wound Disease Active Univers dehiscence dehiscence 9-19 it y of , , 00:00: [address] Morbid Morbid Disease Active Univers obesity obesity 5-10 ity of 00:00: [address] Allergies, Adverse Reactions, Alerts Allergy Allergy Status Severity Reaction(s) Onset Inactive Treating Comm ents Source Name Type Date Date Clinician NO KNOWN Drug Active Univers ALLERGIE Class ity of S [facility] Social History Social Habit Start Date Stop Date Quantity Comments Source Exposure to Not sure [facility] SARS-CoV-2 [facility] (event) Branch Alcohol intake 2021-02-16 2021-02-16 Current [facility] 00:00:00 00:00:00 non-drinker of [facility] alcohol [place] (finding) Tobacco use and 2018-07-14 2018-07-14 Never used Universit y of exposure 00:00:00 00:00:00 [facility] Sex [birth year] Universit y of 00:00:00 00:00:00 [facility] Smoking Status Start Date Stop Date Source Never smoker [facility] Medications Ordered Filled Start Stop Current Ordering Indication Dosage Frequency Signature Comments Components Source Medication Medication Date Date Medication? Clinician (SIG) Name Name cetirizine 2020-04- No [id number] 10mg Take 1 Univers (ZYRTEC) 10 -03-19 tablet by it y of mg tablet 00:00: 05:59 mouth [place] 00 :00 daily for Medical 30 days. Branch cetirizine 2020-04- No [id number] 10mg Take 1 Univers (ZYRTEC) 10 0-19 03-28 tablet by it y of mg tablet 00:00: 05:59 mouth [place] 00 :00 daily for Medical 30 days. Branch cetirizine 2020-04- No [id number] 10mg Take 1 Univers (ZYRTEC) 10 0-19 03-28 tablet by it y of mg tablet 00:00: 05:59 mouth [place] 00 :00 daily for Medical 30 days. Branch codeine-gua 2020-04- No 10mL Take 10 mL Univers ifenesin -05 by mouth ity of 10-100 mg/5 00:00: 04:59 [place] 6 [place] oral 00 :00 (six) Medical solution hours as Branch needed for Cough for up to 7 days. Indication s: cough codeine-gua 2020-04- No 10mL Take 10 mL Univers ifenesin 0-19 03-05 by mouth ity of 10-100 mg/5 00:00: 04:59 [place] 6 [place] mL oral 00 :00 (six) Medical solution hours as Branch needed for Cough for up to 7 days. Indication s: cough NaCl 0.9% 2020- No 1000mL at 999 Uni vers (NS) bolus 1- 01-21 mL/hr, ity of infusion 19:45: 21:00 1,000 mL, Bob as 1,000 mL 00 :00 IV Medical Infusion, Branch ONCE, 1 dose, Clara 05/12/20 at 1345, DREW benzonatate Yes [id number] 100mg Take 1 Univers 100 mg 1-21 capsule by ity of capsule 00:00: mouth 3 00 (three) Medical times Branch daily as needed for Cough for up to 15 doses. methylPREDN Yes [id number] Take by Univers ISolone - mouth ity of (MEDROL, 00:00: SEE-INSTRU Bob as ARCENIO,) 4 mg 00 CTIONS. Medica l tablets follow Branch package directions ibuprofen 2020-0 Yes [id number] 800mg Take 1 U nivers 800 mg 1-21 tablet by ity of tablet 00:00: mouth [place] 00 every 8 Medical (eight) Branch hours as needed for Pain (scale 4-6) for up to 30 doses. benzonatate 2020- Yes [id number] 100mg Take 1 Univers 100 mg 1-21 capsule by ity of capsule 00:00: mouth 3 [place] 00 (three) Medical times Branch daily as needed for Cough for up to 15 doses. methylPREDN 2020-0 Yes [id number] Take by Univers ISolone 1-21 mouth ity of (MEDROL, 00:00: SEE-INSTRU Bob as ARCENIO,) 4 mg 00 CTIONS. Medica l tablets follow Branch package directions ibuprofen 2020-0 Yes [id number] 800mg Take 1 U nivers 800 mg 1-21 tablet by ity of tablet 00:00: mouth [place] 00 every 8 Medical (eight) Branch hours as needed for Pain (scale 4-6) for up to 30 doses. benzonatate 2020-0 Yes [id number] 100mg Take 1 Univers 100 mg 1-21 capsule by ity of capsule 00:00: mouth 3 [place] 00 (three) Medical times Branch daily as needed for Cough for up to 15 doses. methylPREDN 2020-0 Yes [id number] Take by Univers ISolone 1-21 mouth ity of (MEDROL, 00:00: SEE-INSTRU Bob as ARCENIO,) 4 mg 00 CTIONS. Medica l tablets follow Branch package directions ibuprofen 0 Yes [id number] 800mg Take 1 U nivers 800 mg 1-21 tablet by ity of tablet 00:00: mouth [place] 00 every 8 Medical (eight) Branch hours as needed for Pain (scale 4-6) for up to 30 doses. benzonatate Yes [id number] 100mg Take 1 Univers 100 mg 1-21 capsule by ity of capsule 00:00: mouth 3 [place] 00 (three) Medical times Branch daily as needed for Cough for up to 15 doses. methylPREDN 2020-0 Yes [id number] Take by Univers ISolone 1-21 mouth ity of (MEDROL, 00:00: SEE-INSTRU Bob as ARCENIO,) 4 mg 00 CTIONS. Medica l tablets follow Branch package directions ibuprofen 0 Yes [id number] 800mg Take 1 U nivers 800 mg 1-21 tablet by ity of tablet 00:00: mouth [place] 00 every 8 Medical (eight) Branch hours as needed for Pain (scale 4-6) for up to 30 doses. traMADOL Yes [id number] 50mg Take 1 Uni vers (ULTRAM) 50 3-25 tablet by ity of mg tablet 00:00: mouth [place] 00 every 6 Medical (six) Branch hours as needed for Pain (scale 7-10). ondansetron 2018- Yes [id number] 4mg Take 1 Univers (ZOFRAN) 4 3-25 tablet by ity of mg tablet 00:00: mouth [place] 00 every 8 Medical (eight) Branch hours as needed for Nausea and Vomiting (N/V). traMADOL Yes [id number] 50mg Take 1 Uni vers (ULTRAM) 50 3-25 tablet by ity of mg tablet 00:00: mouth [place] 00 every 6 Medical (six) Branch hours as needed for Pain (scale 7-10). ondansetron 2018- Yes [id number] 4mg Take 1 Univers (ZOFRAN) 4 3-25 tablet by ity of mg tablet 00:00: mouth [place] 00 every 8 Medical (eight) Branch hours as needed for Nausea and Vomiting (N/V). traMADOL 2018- Yes [id number] 50mg Take 1 Uni vers (ULTRAM) 50 3-25 tablet by ity of mg tablet 00:00: mouth [place] 00 every 6 Medical (six) Branch hours as needed for Pain (scale 7-10). ondansetron Yes [id number] 4mg Take 1 Univers (ZOFRAN) 4 3-25 tablet by ity of mg tablet 00:00: mouth [place] 00 every 8 Medical (eight) Branch hours as needed for Nausea and Vomiting (N/V). traMADOL Yes [id number] 50mg Take 1 Uni vers (ULTRAM) 50 3-25 tablet by ity of mg tablet 00:00: mouth [place] 00 every 6 Medical (six) Branch hours as needed for Pain (scale 7-10). ondansetron Yes [id number] 4mg Take 1 Univers (ZOFRAN) 4 3-25 [...] every 6 Medical (six) Branch hours. traMADOL 2015-0 Yes 50mg Take 1 Tab [...] Immunizations Ordered Filled Immunization Date Status Comments [facility] e Immunization Name Name MMR 2014-01-04 Completed University of 00:00:00 [facility] MMR 2014-01-04 Completed University of 00:00:00 [facility] MMR 2014-01-04 Completed University of 00:00:00 [facility] MMR 2014-01-04 Completed University of 00:00:00 [facility] Rho (d) Immune 2014-01-03 Completed University of Globulin 00:00:00 [facility] Rho (d) Immune 2014-01-03 Completed University of Globulin 00:00:00 [facility] Rho (d) Immune 2014-01-03 Completed University of Globulin 00:00:00 [facility] Rho (d) Immune 2014-01-03 Completed University of Globulin 00:00:00 [facility] TDAP 2013-10-22 Completed University of 00:00:00 [facility] TDAP 2013-10-22 Completed University of 00:00:00 [facility] TDAP 2013-10-22 Completed University of 00:00:00 [facility] TDAP 2013-10-22 Completed University of 00:00:00 [facility] Influenza Virus 2013-05-29 Completed Universit y of Vaccine (3+ yrs) 00:00:00 [facility] Influenza Virus 2013-05-29 Completed Universit y of Vaccine (3+ yrs) 00:00:00 [facility] Influenza Virus 2013-05-29 Completed Universit y of Vaccine (3+ yrs) 00:00:00 [facility] Influenza Virus 2013-05-29 Completed Universit y of Vaccine (3+ yrs) 00:00:00 [facility] TDAP 2012-08-29 Completed University of 00:00:00 [facility] TDAP 2012-08-29 Completed University of 00:00:00 [facility] TDAP 2012-08-29 Completed University of 00:00:00 [facility] TDAP 2012-08-29 Completed University of 00:00:00 [facility] Influenza Virus 2012-02-03 Completed Universit y of Vaccine 00:00:00 [facility] MMR 2012-02-03 Completed University of 00:00:00 [facility] Influenza Virus 2012-02-03 Completed Universit y of Vaccine 00:00:00 [facility] MMR 2012-02-03 Completed University of 00:00:00 [facility] Influenza Virus 2012-02-03 Completed Universit y of Vaccine 00:00:00 [facility] MMR 2012-02-03 Completed University of 00:00:00 [facility] Influenza Virus 2012-02-03 Completed Universit y of Vaccine 00:00:00 [facility] MMR 2012-02-03 Completed University of 00:00:00 [facility] Rho (d) Immune 2012-02-01 Completed University of Globulin 00:00:00 [facility] Rho (d) Immune 2012-02-01 Completed University of Globulin 00:00:00 [facility] Rho (d) Immune 2012-02-01 Completed University of Globulin 00:00:00 [facility] Rho (d) Immune 2012-02-01 Completed University of Globulin 00:00:00 [facility] Vital Signs Vital Name Observation Time Observation Value Comments Source Systolic blood 2021-02-17 01:22:00 122 mm[Hg] Univer sity of pressure [facility] Diastolic blood 2021-02-17 01:22:00 82 mm[Hg] Unive rsity of pressure [facility] Heart rate 2021-02-17 01:22:00 84 /min [facility] Body temperature 2021-02-17 01:22:00 37 Jesica Univ ersity [facility] [place] [facility] Respiratory rate 2021-02-17 01:22:00 18 /min [facility] Body height 2021-02-17 01:22:00 154.9 cm [facility] Body weight 2021-02-17 01:22:00 127.007 kg [facility] BMI 2021-02-17 01:22:00 52.91 kg/m2 [facility] Oxygen saturation in 2021-02-17 01:22:00 97 /min [facility] Arterial blood by [facility] Pulse oximetry Branch Systolic blood 2020-05-12 22:30:00 127 mm[Hg] Univer sity of pressure [facility] Diastolic blood 2020-05-12 22:30:00 62 mm[Hg] Unive [facility] Heart rate 2020-05-12 22:30:00 68 /min [facility] Respiratory rate 2020-05-12 22:30:00 18 /min [facility] Oxygen saturation in 2020-05-12 22:30:00 100 /min [facility] Arterial blood by [facility] Pulse oximetry Branch Body temperature 2020-05-12 19:01:00 37.28 Jesica [facility] Body weight 2020-05-12 19:01:00 127.007 kg [facility] BMI 2020-05-12 19:01:00 52.91 kg/m2 [facility] Procedures Procedure Date / Time Performed Performing Clinician Sour e XR CHEST 2 2021-02-17 01:40:40 Zhanna Rosales [place] o f [facility] POCT TEST 2020-05-12 20:28:00 Dimas Lora [facility] XR CHEST 1 2020-05-12 20:27:54 Adriana Bowling [facility] TROPONIN I 2020-05-12 20:22:00 Adriana Bowling [facility] HEPATIC FUNCTION PANEL 2020-05-12 20:22:00 Adriana Bowling [facility] ([id number]) [facility] (ALB,T.PRO,BILI T,BU/BC,ALT,AST,ALK PHOS) BASIC METABOLIC PANEL 2020-05-12 20:22:00 Adriana Bowling [facility] (NA, K, CL, CO2, Medical Branch GLUCOSE, BUN, CREATININE, CA) CBC WITH DIFF 2020-05-12 20:22:00 Adriana Bowling [facility] URINALYSIS 2020-05-12 20:22:00 Adriana Bowling [facility] CONSENT/REFUSAL FOR 2020-05-12 18:46:55 [facility], [facility] Name [facility] Branch TREATMENT NOTICE OF PRIVACY 2020-05-12 18:46:37 Doctor Unassigned, No Univ [facility] PRACTICES Name [facility] Encounters Start End Encounter Admission Attending Care Care Encounter Source Date/Time Date/Time Type Type Clinicians Facility Department ID 2021-02-18 Emergency [facility] [id number] Univers 18:36:38 ity [facility] [place] [facility] 2021-03-09 2021-03-09 [facility] [id number] Univers 00:00:00 00:00:00 [employer] HEALTH [id number] it y of [place] [place] [place] [id number] Bob as CLEMENTE?BLEA [id number] [facility] [address] MEDICAL OFFICE BUILDING 2021-02-16 2021-02-16 [facility] [id number] Univers 20:29:09 23:59:00 Encounter [facility] HEALTH [id number] ity of [employer] [id number] Bob as CLEMENTE?BLEA [id number] [facility] [address] MEDICAL OFFICE BUILDING 2021-02-16 2021-02-16 Outpatient R YASMIN [facility] [id number] Univers 20:20:00 20:54:13 HOLLY ity [facility] [place] [facility] 2021-02-16 2021-02-16 Urgent Yohangabrielaperla Markbettie [facility] [id number] Univers 20:19:38 20:54:13 Lelo Hoffman Holly HEALTH [id number] ity of [employer] [id number] Bob as CLEMENTE?BLEA [id number] [address] MEDICAL OFFICE BUILDING 2021-02-16 2021-02-16 Outpatient R [facility] [id number] Univers 20:20:00 20:20:00 [id number] [facility] 2020-05-12 2020-05-12 Emergency Tawnya, [facility] [id number] Univers 13:13:00 16:54:00 Adriana Rdz [place] [id number] [facility] [id number] [facility] [id number] [place] [address] [place] Results Test Description Test Time Test Comments Results Result Comments Source Troponin I 2020-05-12 21:11:00 Test Item Value Reference Range Interpretation Comme nts TROPONIN I (test code = <0.012 See_Comment [Au tomated message] The 6309464987) system which ge nerated this result tra [...] ? Lab Interpretation (test Normal code = 76727-5) [facility] 20:56:00 Test Item Value Reference Range Interpretation Comments APPEARANCE (test code = Hazy Clear A 6323219621) COLOR (test code = Yellow Yellow 4613479744) PH (test code = 4.8-8.0 5460707544) SP GRAVITY (test code = 1.003-1.030 7016748688) GLU U QUAL (test code = Normal Normal 9523625569) BLOOD (test code = Negative Negative 0883851875) KETONES (test code = Negative Negative 3718869910) PROTEIN (test code = Negative Negative 2887-8) UROBILIN (test code = Normal Normal 0899941441) BILIRUBIN (test code = Negative Negative 9421266720) NITRITE (test code = Negative Negative 0070392988) LEUK ROLF (test code = Negative Negative 4142019191) RBC/HPF (test code = See_Comment [Autom ated message] 1835356636) The system [employer] generated this result transmitted ref erence range: 0 - 3 HP F. The reference range was not used to int erpret this result as normal/abnormal . WBC/HPF (test code = <1 See_Comment [Autom ated message] 6964031754) The system [employer] generated this result transmitted ref erence range: 0 - 5 HP F. The reference range was not used to int erpret this result as normal/abnormal . BACTERIA (test code = Negative Negative 7932742005) MUCOUS (test code = Slight Negative LPF A 4534293085) SQ EPITH (test code = HPF 9908106585) Lab Interpretation (test Abnormal code = 76471-0) [facility] (NA, K, CL, CO2, GLUCOSE, BUN, CREATININE, CA)2020-05-12 20:49:00 Test Item Value Reference Range Interpretation Comments NA (test code = 138 mmol/L 135-145 9348576794) K (test code = 4.0 mmol/L 3.5-5 8598876019) CL (test code = 104 mmol/L 98-108 6095523204) CO2 TOTAL (test code = 26 mmol/L 23-31 2848404590) AGAP (test code = 2-16 4425753513) BUN (test code = 13 mg/dL 7-23 3415190762) GLUCOSE (test code = 86 mg/dL 70-110 1893769522) CREATININE (test code 0.51 mg/dL 0.5-1.04 = 5229305123) CALCIUM (test code = 8.9 mg/dL 8.6-10.6 5630032472) eGFR Calculation mL/min/1.73m2 (Non-) (test code = 2122883579) eGFR Calculation mL/min/1.73m2 () (test code = 3835180289) ANJALI (test code = ANJALI) Association of [...] or urine or abnormalities in imaging tests). [facility] (ALB, T.PRO, BILI T, BU/BC, ALT, AST, ALK PHOS)2020-05-12 20:49:00 Test Item Value Reference Range Interpretation Comments TOTAL BILI (test code = 4607040760) 0.5 mg/dL 0.1-1.1 BILI UNCON (test code = 6295080402) 0.4 mg/dL 0.1-1.1 BILI CONJ (test code = 9814450726) 0.0 mg/dL 0-0.3 T PROTEIN (test code = 3758556116) 7.7 g/dL 6.3-8.2 ALBUMIN (test code = 9075519337) 4.4 g/dL 3.5-5 ALK PHOS (test code = 8669895808) 80 U/L 34-122 ALTv (test code = 1742-6) 20 U/L 5-35 AST(SGOT) (test code = 6898782106) 26 U/L 13-40 Lab Interpretation (test code = Normal 77440-5) [facility] with [id number] 20:48:00 Test Item Value Reference Range Interpretation Comments WBC (test code = See_Comment [Automated 0373-2) message] The sy stem which generated this result transmitted reference range : 4.30 - 11.10 10*3/?L. The reference range was not used to interpret this result as normal/abnormal . RBC (test code = See_Comment [Automated 939-8) message] The sy stem which generated this [...] RDW-SD (test code = 46.5 fL 39-49.9 62429-1) RDW-CV (test code = 15.0 % 12-15.5 788-0) PLT (test code = See_Comment [Automated 317-3) message] The sy stem which generated this result transmitted reference range : 166 - 358 10*3/ ?L. The reference r sofía was not used to interpret this result as normal/abnormal . MPV (test code = 10.9 fL 9.5-12.9 87839-5) NRBC/100 WBC (test See_Comment [Automat ed code = 6168551964) message] The system which generated this result transmitted reference range : 0.0 - 10.0 /100 WBCs. The refer ence range was not u sed to interpret th is result as normal/abnormal . NRBC x10^3 (test code <0.01 See_Comment [Auto mated = 3547047744) message] The s ystem which generated this result transmitted reference range : 10*3/?L. The reference range was not used to interpret this result as normal/abnormal . GRAN MAT (NEUT) % 66.6 % (test code = 770-8) IMM GRAN % (test code 0.60 % = 8759519749) LYMPH % (test code = 23.5 % 736-9) MONO % (test code = 6.4 % 5905-5) EOS % (test code = 2.3 % 713-8) BASO % (test code = 0.6 % 706-2) GRAN MAT x10^3(ANC) 5.51 10*3/uL 1.88-7.09 (test code = 6900793622) IMM GRAN x10^3 (test 0.05 10*3/uL 0-0.06 code = 0586420474) LYMPH x10^3 (test code 1.94 10*3/uL 1.32-3.29 = 731-0) MONO x10^3 (test code 0.53 10*3/uL 0.33-0.92 = 742-7) EOS x10^3 (test code = 0.19 10*3/uL 0.03-0.39 711-2) BASO x10^3 (test code 0.05 10*3/uL 0.01-0.07 = 704-7) Lab Interpretation Abnormal (test code = 39096-0) [facility] 1 [id number] 20:31:35HISTORY: Chest pain. TECHNIQUE: Portable AP view of the chest is obtained. Comparison is madewith 01/15/2014 study. FINDINGS: No acute pneumonia. No pneumothorax or pleural effusion orpulmonary congestion detected. Cardiac size is within normal limits. CONCLUSIONS: No signs of acute cardiopulmonary disease.[facility], Radiant Results Inft User - 05/12/2020 2:32 PM CSTHISTORY: Chest pain.TECHNIQUE: Portable AP view of the chest is obtained. Comparison is madewith 01/15/2014 study.FINDINGS: No acute pneumonia. No pneumothorax or pleural effusion orpulmonary congestion detected. Cardiac size is within normal limits. CONCLUSIONS: No signs of acute cardiopulmonary disease.[id number] 20:28:00 Test Item Value Reference Range Interpretation Comments POCT PREG (test code = 1605) Negative On board controls acceptable with C present Line (test code = 3574) Lab Interpretation (test code = Normal 16906-7) [facility]"
[2022-05-18] MEDS ORDERED: ADENOSINE 6 MG/ 2ML VIAL IV ONE (17:14)
[2022-05-18] MEDS ORDERED: NA CHLORIDE 0.9% 1,000 ML ONE (17:18)
[2022-05-18] MEDS ORDERED: NA CHLORIDE 0.9% 0 ML ONE (17:18)
[2022-05-18 17:25] LABS: Absolute Lymphocytes (CBC) 1.9 K/uL (0.7-4.9); Hematocrit 36.8 % (36.0-45.0); Lymphocytes % 24.8 % (15.3-44.8); MCV 82.2 fL (80-100); MPV 8.2 fL (7.6-11.3); RBC Red Blood Cell Count 4.47 M/uL (3.86-4.86)
[2022-05-18 17:34] LABS: Protime INR 1.03
[2022-05-18 17:55] LABS: Albumin 3.5 g/dL (3.4-5.0); Bilirubin Direct 0.1 mg/dL (0-0.2); Bilirubin Total 0.3 mg/dL (0.2-1.0); Magnesium 2.2 mg/dL (1.6-2.4); Potassium 3.3 mmol/L (3.5-5.1); Protein, Total 7.5 g/dL (6.4-8.2); Thyroid Stimulating Hormone 1.11 uIU/mL (0.358-3.740); Troponin High Sensitivity 6.3 pg/mL (<58.9)
--- NOTE | 2022-05-18 18:01 | RAD REPORT ---
EXAM DESCRIPTION: RAD - Chest Single View - 05/18/2022 5:46 pm CLINICAL HISTORY: CHEST PAIN COMPARISON: Chest Single View dated 04/22/2021; CHEST SINGLE VIEW dated 05/20/2013 FINDINGS: Lines: None. Lungs: Prominence of the vascular markings in the medial right lung base. This likely is secondary to some atelectasis. No consolidative pneumonia or edema. Pleural: No significant pleural effusions or pneumothorax. Cardiac: Similar size and configuration. Mediastinum: Within normal limits. Bones: No acute fractures. Other: None IMPRESSION: No definite acute process. Increased vascular markings in the right lung base probably s econdary to atelectasis.
--- NOTE | 2022-05-18 19:42 | RAD REPORT ---
EXAM DESCRIPTION: CT - Chest For Pe Angio - 05/18/2022 7:27 pm CLINICAL HISTORY: SVT, SOB COMPARISON: Chest For Pe Angio dated 04/22/2021 TECHNIQUE: Dynamically enhanced axial 3 mm thick images of the chest were obtained during administra tion of <100> mL Isovue 370 IV contrast. Coronal and oblique reconstruction images were generated and reviewed. Exam utilizes a protocol for optimal evaluation of pulmonary arterial tree. Maximum intensity projections 3D imaging was utilized All CT scans are performed using dose optimization technique as appropriate and may include automated exposure control or mA/KV adjustment according to patient size. FINDINGS: Chest Wall: No suspicious thyroid nodules or pathologic lymphadenopathy. Lungs: No acute abnormality. Motion artifact. Pleura: No significant effusions or pneumothorax. Mediastinum/nellie: No pathologic lymphadenopathy. Pulmonary arteries/Aorta: No filling defect identified. No aortic aneurysm. Heart: No significant pericardial effusion. Normal heart size. Upper abdomen: Hepatic steatosis. Bones: No acute abnormality. IMPRESSION: Negative for pulmonary embolism. No other acute finding present within the chest.
--- NOTE | 2022-05-18 19:48 | EDPHYS ---
Physician Documentation [facility] Name: Samra Marina Age: 36 yrs Sex: Female : 1985 Arrival Date: 05/18/2022 Time: 17:[address] Private MD: ED Physician Pradeep Hansen HPI: 05/18 17:27 This 36 yrs old Female presents to ER via Wheelchair with complaints of Chest snw Pain, Palpitations. 17:27 Onset: The symptoms/episode began/occurred acutely, 1 hour(s) ago, and became snw persistent. Associated signs and symptoms: The patient has no apparent associated signs or symptoms. The patient has experienced a previous episode, approximately 1 years ago. The patient has not recently seen a physician. Historical: - Allergies: 17:23 No Known Allergies; hb - PSHx: 17:23 Appendectomy; section; cholesystectomy; hb - Immunization history:: Adult Immunizations up to date. - Social history:: Smoking status: Patient denies any tobacco usage or history of. ROS: 17:27 Constitutional: Negative for fever, chills, and weight loss, Eyes: Negative for injury, snw pain, redness, and discharge, ENT: Negative for injury, pain, and discharge, Neck: Negative for injury, pain, and swelling, Respiratory: Negative for shortness of breath, cough, wheezing, and pleuritic chest pain, Abdomen/GI: Negative for abdominal pain, nausea, vomiting, diarrhea, and constipation, Back: Negative for injury and pain, : Negative for injury, bleeding, discharge, and swelling, MS/Extremity: Negative for injury and deformity, Skin: Negative for injury, rash, and discoloration, Neuro: Negative for headache, weakness, numbness, tingling, and seizure, Psych: Negative for depression, anxiety, suicide ideation, homicidal ideation, and hallucinations. 17:27 Cardiovascular: Positive for chest pain, palpitations. Exam: 17:25 Constitutional: This is a well developed, well nourished patient who is awake, alert, snw and in no acute distress. Head/Face: Normocephalic, atraumatic. Eyes: Pupils equal round and reactive to light, extra-ocular motions intact. Lids and lashes normal. Conjunctiva and sclera are non-icteric and not injected. Cornea within normal limits. Periorbital areas with no swelling, redness, or edema. ENT: Nares patent. No nasal discharge, no septal abnormalities noted. Tympanic membranes are normal and external auditory canals are clear. Oropharynx with no redness, swelling, or masses, exudates, or evidence of obstruction, uvula midline. Mucous membranes moist. Neck: Trachea midline, no thyromegaly or masses palpated, and no cervical lymphadenopathy. Supple, full range of motion without nuchal rigidity, or vertebral point tenderness. No Meningismus. Chest/axilla: Normal chest wall appearance and motion. Nontender with no deformity. No lesions are appreciated. 17:25 Respiratory: Lungs have equal breath sounds bilaterally, clear to auscultation and percussion. No rales, rhonchi or wheezes noted. No increased work of breathing, no retractions or nasal flaring. Abdomen/GI: Soft, non-tender, with normal bowel sounds. No distension or tympany. No guarding or rebound. No evidence of tenderness throughout. Back: No spinal tenderness. No costovertebral tenderness. Full range of motion. Skin: Warm, dry with normal turgor. Normal color with no rashes, no lesions, and no evidence of cellulitis. MS/ Extremity: Pulses equal, no cyanosis. Neurovascular intact. Full, normal range of motion. Neuro: Awake and alert, GCS 15, oriented to person, place, time, and situation. Cranial nerves II-XII grossly intact. Motor strength 5/5 in all extremities. Sensory grossly intact. Cerebellar exam normal. Normal gait. Psych: Awake, alert, with orientation to person, place and time. Behavior, mood, and affect are within normal limits. 17:25 Cardiovascular: Rate: tachycardic, Rhythm: regular, Pulses: no pulse deficits are appreciated, Heart sounds: normal, normal S1and S2, Edema: is not appreciated. Vital Signs: 17:06 BP 106 / 76; Pulse 192; Resp 24; Temp 97.8; Pulse Ox 100% on R/A; Pain 6/10; hb 17:16 BP 153 / 96; Pulse 180; eh3 17:16 BP 153 / 96; Pulse 180; Resp 27; Pulse Ox 99% ; eh3 17:18 BP 137 / 81; Pulse 101; Resp 23; Pulse Ox 99% on R/A; eh3 17:30 BP 137 / 81; Pulse 101; eh3 17:30 BP 122 / 83; Pulse 102; Resp 27; Pulse Ox 95% on R/A; eh3 18:30 BP 127 / 79; Pulse 103; Resp 22; Pulse Ox 95% on R/A; eh3 19:30 BP 102 / 58; Pulse 94; Resp 16; Pulse Ox 100% on R/A; eh3 Procedures: 17:28 Cardioversion: chemical. Peripheral line: by aseptic technique a peripheral line was snw placed in the right antecubital vein. MDM: 17:05 Patient medically screened. snw 17:28 Data reviewed: vital signs, nurses notes. I considered the following discharge snw prescriptions or medication management in the emergency department adenocard 6mg given without relief. adenocard 12mg IV given with conversion to NSR 98bpm. pt tolerated well. Counseling: I had a detailed discussion with the patient and/or guardian regarding: the historical points, exam findings, and any diagnostic results supporting the discharge/admit diagnosis, the presence of at least one elevated blood pressure reading (>120/80) during this emergency department visit. Awaiting: labs results. 19:16 Response to treatment: the patient's symptoms have markedly improved after treatment. snw ED course: pt to CT via stretcher for r/o PE. 05/18 17:05 Order name: Basic Metabolic Panel; Complete Time: 17:56 w 05/18 17:05 Order name: CBC with Diff; Complete Time: 17:38 w 05/18 17:05 Order name: LFT's; Complete Time: 17:56 w 05/18 17:05 Order name: Magnesium; Complete Time: 17:56 w 05/18 17:05 Order name: NT PRO-BNP; Complete Time: 17:56 w 05/18 17:05 Order name: PT-INR; Complete Time: 17:38 w 05/18 17:05 Order name: Troponin HS; Complete Time: 17:56 w 05/18 17:05 Order name: XRAY Chest (1 view); Complete Time: 18:23 w 05/18 17:05 Order name: TSH; Complete Time: 17:56 w 05/18 18:33 Order name: CT Chest For PE Angio; Complete Time: 19:45 05/18 17:05 Order name: EKG; Complete Time: 17:06 snw 05/18 17:05 Order name: Cardiac monitoring; Complete Time: 17:25 snw 05/18 17:05 Order name: EKG - Nurse/Tech; Complete Time: 17:25 snw 05/18 17:05 Order name: IV Saline Lock; Complete Time: 17:25 snw 05/18 17:05 Order name: Labs collected and sent; Complete Time: 17: snw 05/18 17:05 Order name: O2 Per Protocol; Complete Time: 17: snw 05/18 17:05 Order name: O2 Sat Monitoring; Complete Time: 17:25 snw EC:21 Rate is 98 beats/min. Rhythm is regular. SD interval is normal. QRS interval is normal. snw QT interval is normal. T waves are Inverted in lead aVR. T waves are Flattened in lead III. Clinical impression: NSR w/ Non-specific ST/T Changes. 17:25 Rate is 193 beats/min. Rhythm is regular. SD interval is shortened. Clinical snw impression: PSVT. Administered Medications: 17:15 Drug: Adenosine 6 mg Route: IVP; Site: right antecubital; hb 17:16 Follow up: BP 153 / 96; Pulse 180 bpm 3 17:25 Drug: Adenosine 12 mg Route: IVP; Site: right antecubital; hb 17:30 Follow up: BP 137 / 81; Pulse 101 bpm eh3 17:25 CANCELLED (Duplicate Order): Adenocard (adenosine) 12 mg IVP once snw 19:54 Drug: Potassium Chloride 20 mEq Route: PO; eh3 19:56 Follow up: Response: Medication administered at discharge. 3 Disposition Summary: 05/18/22 19:47 Discharge Ordered Location: Home snw Condition: Stable snw Diagnosis - Paroxysmal tachycardia, unspecified - PSVT snw - Supraventricular tachycardia snw Followup: snw - With: Emergency Department - When: As needed - Reason: Worsening of condition Followup: snw - With: Private Physician - When: 2 - 3 days - Reason: Recheck today's complaints, Continuance of care, Re-evaluation by your physician Discharge Instructions: - Discharge Summary Sheet snw - Chemical Cardioversion snw - Supraventricular Tachycardia, Adult snw - Hypokalemia snw - Electrophysiology Study snw Forms: - Medication Reconciliation Form snw - Thank You Letter snw - Antibiotic Education snw - Prescription Opioid Use snw Prescriptions: - Propranolol 20 mg Oral Tablet - take 1 tablet by ORAL route every 12 hours; 60 tablet; Refills: 0, Product snw Selection Permitted Signatures: Dispatcher [employer] EDMS Clarita Patel, ELAINE-C BUFFER MACHINE-Csnw Tennille Galvan RN RN Kanwal Fontaine RN RN eh3 Corrections: (The following items were deleted from the chart) 17:25 17:25 Adenocard (adenosine) 12 mg IVP once ordered. snw snw
--- NOTE | 2022-05-18 19:48 | ER ---
Nurse's Notes [facility] Name: Samra Marina Age: 36 yrs Sex: Female : 1985 Arrival Date: 05/18/2022 Time: 17:[address] Private MD: Diagnosis: Paroxysmal tachycardia, unspecified-PSVT;Supraventricular tachycardia Presentation: 05/18 17:06 Chief complaint: Sudden onset SOB, palpitations, and chest tightness that started 20 hb mins ago. 17:06 Coronavirus screen: At this time, the client does not indicate any symptoms associated hb with coronavirus-19. Ebola Screen: No symptoms or risks identified at this time. Initial Sepsis Screen: Does the patient meet any 2 criteria? No. Patient's initial sepsis screen is negative. Does the patient have a suspected source of infection? No. Patient's initial sepsis screen is negative. Risk Assessment: Do you want to hurt yourself or someone else? Patient reports no desire to harm self or others. Onset of symptoms was May 18, 2022. 17:06 Method Of Arrival: Wheelchair hb 17:06 Acuity: DARCIE 1 hb Historical: - Allergies: 17:23 No Known Allergies; hb - PSHx: 17:23 Appendectomy; section; cholesystectomy; hb - Immunization history:: Adult Immunizations up to date. - Social history:: Smoking status: Patient denies any tobacco usage or history of. Screenin:10 [facility] ED Fall Risk Assessment (Adult) History of falling in the last 3 months, eh3 including since admission No falls in past 3 months (0 pts) Confusion or Disorientation No (0 pts) Intoxicated or Sedated No (0 pts) Impaired Gait No (0 pts) Mobility Assist Device Used No (0 pt) Altered Elimination No (0 pt) Score/Fall Risk Level 0 - 2 = Low Risk. Abuse screen: Denies threats or abuse. Denies injuries from another. Nutritional screening: No deficits noted. Tuberculosis screening: No symptoms or risk factors identified. Assessment: 17:10 General: Appears distressed, uncomfortable, Behavior is cooperative, appropriate for eh3 age, anxious, crying. Pain: Complains of pain in chest Pain does not radiate. Pain began 30 min ago. Neuro: Level of Consciousness is awake, alert, obeys commands, Oriented to person, place, time, situation. Cardiovascular: Reports chest pain, diaphoresis, palpitations, shortness of breath, Capillary refill < 3 seconds. Respiratory: Airway is patent Respiratory effort is even, labored, Respiratory pattern is regular, symmetrical. GI: No signs and/or symptoms were reported involving the gastrointestinal system. Abdomen is round non-distended. : No signs and/or symptoms were reported regarding the genitourinary system. EENT: No signs and/or symptoms were reported regarding the EENT system. Derm: No signs and/or symptoms reported regarding the dermatologic system. Musculoskeletal: No signs and/or symptoms reported regarding the musculoskeletal system. Circulation, motion, and sensation intact. Range of motion: intact in all extremities. 17:30 Reassessment: Patient appears in no apparent distress at this time. Patient and/or eh3 family updated on plan of care and expected duration. Pain level reassessed. 18:30 Reassessment: Patient appears in no apparent distress at this time. Patient and/or eh3 family updated on plan of care and expected duration. Pain level reassessed. 19:30 Reassessment: Patient appears in no apparent distress at this time. Patient and/or eh3 family updated on plan of care and expected duration. Pain level reassessed. Patient is alert, oriented x 3, equal unlabored respirations, skin warm/dry/pink. Vital Signs: 17:06 BP 106 / 76; Pulse 192; Resp 24; Temp 97.8; Pulse Ox 100% on R/A; Pain 6/10; hb 17:16 BP 153 / 96; Pulse 180; eh3 17:16 BP 153 / 96; Pulse 180; Resp 27; Pulse Ox 99% ; eh3 17:18 BP 137 / 81; Pulse 101; Resp 23; Pulse Ox 99% on R/A; eh3 17:30 BP 137 / 81; Pulse 101; eh3 17:30 BP 122 / 83; Pulse 102; Resp 27; Pulse Ox 95% on R/A; eh3 18:30 BP 127 / 79; Pulse 103; Resp 22; Pulse Ox 95% on R/A; eh3 19:30 BP 102 / 58; Pulse 94; Resp 16; Pulse Ox 100% on R/A; eh3 ED Course: 17:04 Patient arrived in ED. rg4 17:04 Clarita Patel FNP-C is PHCP. snw 17:04 Pradeep Hansen MD is Attending Physician. snw 17:09 Kanwal Fontaine, YEYO is Primary Nurse. eh3 17:10 Inserted saline lock: 20 gauge in right antecubital area, using aseptic technique. eh3 Blood collected. IV inserted by Lalita Mccord RN. Patient maintains SpO2 saturation greater than 95% on room air. 17:23 Triage completed. hb 17:24 Arm band placed on. hb 17:30 Patient has correct armband on for positive identification. Call light in reach. Side eh3 rails up X2. Adult w/ patient. Client placed on continuous cardiac and pulse oximetry monitoring. NIBP monitoring applied. Door closed. Noise minimized. Lights dimmed. Warm blanket given. 17:48 XRAY Chest (1 view) In Process Unspecified. EDMS 19:28 CT Chest For PE Angio In Process Unspecified. EDMS 19:56 No provider procedures requiring assistance completed. IV discontinued, intact, eh3 bleeding controlled, No redness/swelling at site. Pressure dressing applied. Administered Medications: 17:15 Drug: Adenosine 6 mg Route: IVP; Site: right antecubital; hb 17:16 Follow up: BP 153 / 96; Pulse 180 bpm eh3 17:25 Drug: Adenosine 12 mg Route: IVP; Site: right antecubital; hb 17:30 Follow up: BP 137 / 81; Pulse 101 bpm eh3 17:25 CANCELLED (Duplicate Order): Adenocard (adenosine) 12 mg IVP once snw 19:54 Drug: Potassium Chloride 20 mEq Route: PO; eh3 19:56 Follow up: Response: Medication administered at discharge. eh3 Medication: 19:56 VIS not applicable for this client. eh3 Outcome: 19:47 Discharge ordered by . snw 19:57 Discharged to home ambulatory, with significant other. eh3 19:57 Condition: stable 19:57 Discharge instructions given to patient, family, Instructed on discharge instructions, follow up and referral plans. medication usage, Demonstrated understanding of instructions, follow-up care, medications, Prescriptions given X 1. 20:02 Patient left the ED. eh3 Signatures: Dispatcher [employer] EDKS Clarita Patel, BI REPORT DEVELOPER-C BI REPORT DEVELOPER-Csnw Tennille Galvan RN RN hb Garcia, Rubi rg4 Kanwal Fontaine RN RN eh3 Corrections: (The following items were deleted from the chart) 17:23 17:22 Chief complaint: Sudden onset SOB, palpitations, and chest tightness that started hb 20 mins ago. hb
[2022-05-18] MEDS ORDERED: POTASSIUM CL SA 10 MEQ TAB PO ONE (19:57)
[2022-05-18 20:29] VITALS: TEMP 97.8
[2022-05-18 20:35] VITALS: BP 102/58; O2SAT 100
== END 2022-05-18 20:02 | disposition home or self-care (01) ==
LOC: ER 17:00
DX: I47.1 Supraventricular tachycardia (principal)
CPT/HCPCS: 36415; 71045; 71275; 80048; 80076; 83735; 83880; 84443; 84484; 85025; 85610; 92960; 93005; 96374; 99291; 99292; J0153; J7030; Q9967

== ENCOUNTER 2022-10-25 03:51 | Emergency (ER) | payer SELFPAY ==
--- OUTSIDE RECORDS SUMMARY | 2022-10-25 03:54 | XMS REPORT | Continuity of Care Document ---
:1985 Author Organization [facility] t Address [address] [place] [address] [address] [place] [address] Care Team Providers Name Role Phone Pcp, [...] of routine routine 00:00: g of this [place] gynecologi gynecologi 00 note Me dical yazmin yazmin might be Branch examinatio examinatio different n n from the original. ICD10 Diagnosis Term Contract Implementation Analyst Utility Surveillan Surveillan Disease Active 2013-04 Overview : Univers ce of ce of 1-10 Formattin ity of previously previously 00:00: g of this [place] prescribed prescribed 00 note Me dical contracept contracept might be Branch micky method micky method different from the original. ICD10 Diagnosis Term Contract Implementation Analyst Utility Acid Acid Disease Active 2013-04 Univers reflux reflux -10 ity of 00:00: [place] 00 Medical Branch Disease Active 2013-04 U nivers mood mood 0-07 ity of disturbanc disturb[place] Tubal Tubal Disease Active 2013-04 Univers ligation ligation 0-07 ity of status status 00:00: [place] [address] Medical Branch Wound Wound Disease Active Univers dehiscence dehiscence 9-19 it y of , , 00:00: [address] Morbid Morbid Disease Active Univers obesity obesity 5-10 ity of 00:00: [address] Allergies, Adverse Reactions, Alerts Allergy Allergy Status Severity Reaction(s) Onset Inactive Treating Comm ents Source Name Type Date Date Clinician NO KNOWN Drug Active Univers ALLERGIE Class ity of S [facility] Social History Social Habit Start Date Stop Date Quantity Comments Source Exposure to Not sure [facility] SARS-CoV-2 [facility] (event) Branch Alcohol intake 2021-02-16 2021-02-16 Current [facility] 00:00:00 00:00:00 non-drinker of [facility] alcohol [place] (finding) Tobacco use and 2018-07-14 2018-07-14 Never used Universit y of exposure 00:00:00 00:00:00 [facility] Sex Ass[birth year] At [birth year] Universit y of 00:00:00 00:00:00 [facility] Smoking Status Start Date Stop Date Source Never smoker [facility] Medications Ordered Filled Start Stop Current Ordering Indication Dosage Frequency Signature Comments Components Source Medication Medication Date Date Medication? Clinician (SIG) Name Name cetirizine 2020-04- No [id number] 10mg Take 1 Univers (ZYRTEC) 10 -03-19 tablet by it y of mg tablet 00:00: 05:59 mouth [place] 00 :00 daily for Medical 30 days. Branch cetirizine 2020-04- No [id number] 10mg Take 1 Univers (ZYRTEC) 10 0-19 03-28 tablet by it y of mg tablet 00:00: 05:59 mouth [place] 00 :00 daily for Medical 30 days. Branch cetirizine 2020-04- No [id number] 10mg Take 1 Univers (ZYRTEC) 10 0-19 [...] Clara 05/12/20 at 1345, DREW benzonatate Yes [id number] 100mg Take 1 Univers 100 mg 1-21 capsule by ity of capsule 00:00: mouth 3 00 (three) Medical times Branch daily as needed for Cough for up to 15 doses. methylPREDN Yes [id number] Take by Univers ISolone - mouth ity of (MEDROL, 00:00: SEE-INSTRU Bob as ARCENIO,) 4 mg 00 CTIONS. Medica l tablets follow Branch package directions ibuprofen 2020-0 Yes [id number] 800mg Take 1 U nivers 800 mg 1-21 tablet by ity of tablet 00:00: mouth [place] 00 every 8 Medical (eight) Branch hours as needed for Pain (scale 4-6) for up to 30 doses. benzonatate 2020- Yes [id number] 100mg Take 1 Univers 100 mg 1-21 capsule by ity of capsule 00:00: mouth 3 [place] 00 (three) Medical times Branch daily as needed for Cough for up to 15 doses. methylPREDN 2020-0 Yes [id number] Take by Univers ISolone 1-21 mouth ity of (MEDROL, 00:00: SEE-INSTRU Bob as ARCENIO,) 4 mg 00 CTIONS. Medica l tablets follow Branch package directions ibuprofen 2020-0 Yes [id number] 800mg Take 1 U nivers 800 mg 1-21 tablet by ity of tablet 00:00: mouth [place] 00 every 8 Medical (eight) Branch hours as needed for Pain (scale 4-6) for up to 30 doses. benzonatate 2020-0 Yes [id number] 100mg Take 1 Univers 100 mg 1-21 capsule by ity of capsule 00:00: mouth 3 [place] 00 (three) Medical times Branch daily as needed for Cough for up to 15 doses. methylPREDN 2020-0 Yes [id number] Take by Univers ISolone 1-21 mouth ity of (MEDROL, 00:00: SEE-INSTRU Bob as ARCENIO,) 4 mg 00 CTIONS. Medica l tablets follow Branch package directions ibuprofen 0 Yes [id number] 800mg Take 1 U nivers 800 mg 1-21 tablet by ity of tablet 00:00: mouth [place] 00 every 8 Medical (eight) Branch hours as needed for Pain (scale 4-6) for up to 30 doses. benzonatate Yes [id number] 100mg Take 1 Univers 100 mg 1-21 capsule by ity of capsule 00:00: mouth 3 [place] 00 (three) Medical times Branch daily as needed for Cough for up to 15 doses. methylPREDN 2020-0 Yes [id number] Take by Univers ISolone 1-21 mouth ity of (MEDROL, 00:00: SEE-INSTRU Bob as ARCENIO,) 4 mg 00 CTIONS. Medica l tablets follow Branch package directions ibuprofen 0 Yes [id number] 800mg Take 1 U nivers 800 mg 1-21 tablet by ity of tablet 00:00: mouth [place] 00 every 8 Medical (eight) Branch hours as needed for Pain (scale 4-6) for up to 30 doses. traMADOL Yes [id number] 50mg Take 1 Uni vers (ULTRAM) 50 3-25 tablet by ity of mg tablet 00:00: mouth [place] 00 every 6 Medical (six) Branch hours as needed for Pain (scale 7-10). ondansetron 2018- Yes [id number] 4mg Take 1 Univers (ZOFRAN) 4 3-25 tablet by ity of mg tablet 00:00: mouth [place] 00 every 8 Medical (eight) Branch hours as needed for Nausea and Vomiting (N/V). traMADOL Yes [id number] 50mg Take 1 Uni vers (ULTRAM) 50 3-25 tablet by ity of mg tablet 00:00: mouth [place] 00 every 6 Medical (six) Branch hours as needed for Pain (scale 7-10). ondansetron 2018- Yes [id number] 4mg Take 1 Univers (ZOFRAN) 4 3-25 tablet by ity of mg tablet 00:00: mouth [place] 00 every 8 Medical (eight) Branch hours as needed for Nausea and Vomiting (N/V). traMADOL 2018- Yes [id number] 50mg Take 1 Uni vers (ULTRAM) 50 3-25 tablet by ity of mg tablet 00:00: mouth [place] 00 every 6 Medical (six) Branch hours as needed for Pain (scale 7-10). ondansetron Yes [id number] 4mg Take 1 Univers (ZOFRAN) 4 3-25 tablet by ity of mg tablet 00:00: mouth [place] 00 every 8 Medical (eight) Branch hours as needed for Nausea and Vomiting (N/V). traMADOL Yes [id number] 50mg Take 1 Uni vers (ULTRAM) 50 3-25 tablet by ity of mg tablet 00:00: mouth [place] 00 every 6 Medical (six) Branch hours as needed for Pain (scale 7-10). ondansetron Yes [id number] 4mg Take 1 Univers (ZOFRAN) 4 3-25 [...] Immunizations Ordered Filled Immunization Date Status Comments [facility] e Immunization Name Name MMR 2014-01-04 Completed University of 00:00:00 [facility] MMR 2014-01-04 Completed University of 00:00:00 [facility] MMR 2014-01-04 Completed University of 00:00:00 [facility] MMR 2014-01-04 Completed University of 00:00:00 [facility] Rho (d) Immune 2014-01-03 Completed University of Globulin 00:00:00 [facility] Rho (d) Immune 2014-01-03 Completed University of Globulin 00:00:00 [facility] Rho (d) Immune 2014-01-03 Completed University of Globulin 00:00:00 [facility] Rho (d) Immune 2014-01-03 Completed University of Globulin 00:00:00 [facility] TDAP 2013-10-22 Completed University of 00:00:00 [facility] TDAP 2013-10-22 Completed University of 00:00:00 [facility] TDAP 2013-10-22 Completed University of 00:00:00 [facility] TDAP 2013-10-22 Completed University of 00:00:00 [facility] Influenza Virus 2013-05-29 Completed Universit y of Vaccine (3+ yrs) 00:00:00 [facility] Influenza Virus 2013-05-29 Completed Universit y of Vaccine (3+ yrs) 00:00:00 [facility] Influenza Virus 2013-05-29 Completed Universit y of Vaccine (3+ yrs) 00:00:00 [facility] Influenza Virus 2013-05-29 Completed Universit y of Vaccine (3+ yrs) 00:00:00 [facility] TDAP 2012-08-29 Completed University of 00:00:00 [facility] TDAP 2012-08-29 Completed University of 00:00:00 [facility] TDAP 2012-08-29 Completed University of 00:00:00 [facility] TDAP 2012-08-29 Completed University of 00:00:00 [facility] Influenza Virus 2012-02-03 Completed Universit y of Vaccine 00:00:00 [facility] MMR 2012-02-03 Completed University of 00:00:00 [facility] Influenza Virus 2012-02-03 Completed Universit y of Vaccine 00:00:00 [facility] MMR 2012-02-03 Completed University of 00:00:00 [facility] Influenza Virus 2012-02-03 Completed Universit y of Vaccine 00:00:00 [facility] MMR 2012-02-03 Completed University of 00:00:00 [facility] Influenza Virus 2012-02-03 Completed Universit y of Vaccine 00:00:00 [facility] MMR 2012-02-03 Completed University of 00:00:00 [facility] Rho (d) Immune 2012-02-01 Completed University of Globulin 00:00:00 [facility] Rho (d) Immune 2012-02-01 Completed University of Globulin 00:00:00 [facility] Rho (d) Immune 2012-02-01 Completed University of Globulin 00:00:00 [facility] Rho (d) Immune 2012-02-01 Completed University of Globulin 00:00:00 [facility] Vital Signs Vital Name Observation Time Observation Value Comments Source Systolic blood 2021-02-17 01:22:00 122 mm[Hg] Univer sity of pressure [facility] Diastolic blood 2021-02-17 01:22:00 82 mm[Hg] Unive rsity of pressure [facility] Heart rate 2021-02-17 01:22:00 84 /min [facility] [place] [facility] Body temperature 2021-02-17 01:22:00 37 [facility] Univ ersity [facility] Respiratory rate 2021-02-17 01:22:00 18 /min [facility] Body height 2021-02-17 01:22:00 154.9 cm [facility] Body weight 2021-02-17 01:22:00 127.007 kg [facility] BMI 2021-02-17 01:22:00 52.91 kg/m2 [facility] Oxygen saturation in 2021-02-17 01:22:00 97 /min [facility] Arterial blood by [facility] Pulse oximetry Branch Systolic blood 2020-05-12 22:30:00 127 mm[Hg] Univer sity of pressure [facility] Diastolic blood 2020-05-12 22:30:00 62 mm[Hg] Unive [facility] Heart rate 2020-05-12 22:30:00 68 /min [facility] Respiratory rate 2020-05-12 22:30:00 18 /min [facility] Oxygen saturation in 2020-05-12 22:30:00 100 /min [facility] Arterial blood by [facility] Pulse oximetry Branch Body temperature 2020-05-12 19:01:[address] [facility] Body weight 2020-05-12 19:01:00 127.007 kg [facility] BMI 2020-05-12 19:01:00 52.91 kg/m2 [facility] Procedures Procedure Date / Time Performed Performing Clinician Sour e XR CHEST 2 2021-02-17 01:40:40 Zhanna Rosales Willmar o f [facility] POCT TEST 2020-05-12 20:28:00 Dimas Lora [facility] XR CHEST 1 2020-05-12 20:27:54 Adriana Bowling [facility] TROPONIN I 2020-05-12 20:22:00 Adriana Bowling [facility] HEPATIC FUNCTION PANEL 2020-05-12 20:22:00 Adriana Bowling [facility] ([id number]) [facility] (ALB,T.PRO,BILI T,BU/BC,ALT,AST,ALK PHOS) BASIC METABOLIC PANEL 2020-05-12 20:22:00 Adriana Bowling [facility] (NA, K, CL, CO2, Medical Branch GLUCOSE, BUN, CREATININE, CA) CBC WITH DIFF 2020-05-12 20:22:00 Adriana Bowling [facility] URINALYSIS 2020-05-12 20:22:00 Adriana Bowling [facility] CONSENT/REFUSAL FOR 2020-05-12 18:46:55 [facility] Name [facility] Branch TREATMENT NOTICE OF PRIVACY 2020-05-12 18:46:37 Doctor Unassigned, No Univ [facility] PRACTICES Name [facility] Encounters Start End Encounter Admission Attending Care Care Encounter Source Date/Time Date/Time Type Type Clinicians Facility Department ID 2021-02-18 Emergency [facility] [id number] Univers 18:36:38 ity [facility] 2021-03-09 2021-03-09 [id number] Univers 00:00:00 00:00:00 [facility] HEALTH [id number] it y of [place] [id number] Bob as CLEMENTE?BLEA [id number] [facility] [address] [place] MEDICAL OFFICE BUILDING 2021-02-16 2021-02-16 [facility] [id number] Univers 20:29:09 23:59:00 Encounter [facility] HEALTH [id number] ity of [place] [id number] Bob as CLEMENTE?BLEA [id number] [facility] [address] [place] MEDICAL OFFICE BUILDING 2021-02-16 2021-02-16 Outpatient R YASMIN [facility] [id number] Univers 20:20:00 20:54:13 HOLLY ity [facility] 2021-02-16 2021-02-16 Urgent Yohangabrielaperla Markbettie [facility] [id number] Univers 20:19:38 20:54:13 Lelo Hoffman [place] HEALTH [id number] ity of [place] [id number] Bob as CLEMENTE?BLEA [id number] [address] MEDICAL OFFICE BUILDING 2021-02-16 2021-02-16 Outpatient R [facility] [id number] Univers 20:20:00 20:20:00 [id number] [facility] 2020-05-12 2020-05-12 Emergency Tawnya, [facility] [id number] Univers 13:13:00 16:54:00 Adriana Rdz [place] [id number] [facility] 4.2.7.2.686 [facility] [id number] [place] [address] [place] Results Test Description Test Time Test Comments Results Result Comments Source Troponin I 2020-05-12 21:11:00 Test Item Value Reference Range Interpretation Comme nts TROPONIN I (test code = <0.012 See_Comment [Au tomated message] The 9885664596) system which ge nerated this result tra [...] ? Lab Interpretation (test Normal code = 84060-0) [facility] 20:56:00 Test Item Value Reference Range Interpretation Comments APPEARANCE (test code = Hazy Clear A 9841439036) COLOR (test code = Yellow Yellow 8698920398) PH (test code = 4.8-8.0 7423728186) SP GRAVITY (test code = 1.003-1.030 9535491919) GLU U QUAL (test code = Normal Normal 9573084997) BLOOD (test code = Negative Negative 8113674774) KETONES (test code = Negative Negative 0212540074) PROTEIN (test code = Negative Negative 2887-8) UROBILIN (test code = Normal Normal 9657235503) BILIRUBIN (test code = Negative Negative 5997826093) NITRITE (test code = Negative Negative 6091303932) LEUK ROLF (test code = Negative Negative 1576401761) RBC/HPF (test code = See_Comment [Autom ated message] 1828130485) The system [employer] generated this result transmitted ref erence range: 0 - 3 HP F. The reference range was not used to int erpret this result as normal/abnormal . WBC/HPF (test code = <1 See_Comment [Autom ated message] 8538386679) The system [employer] generated this result transmitted ref erence range: 0 - 5 HP F. The reference range was not used to int erpret this result as normal/abnormal . BACTERIA (test code = Negative Negative 7603417488) MUCOUS (test code = Slight Negative LPF A 8384453775) SQ EPITH (test code = HPF 2987642829) Lab Interpretation (test Abnormal code = 53852-7) [facility] (NA, K, CL, CO2, GLUCOSE, BUN, CREATININE, CA)2020-05-12 20:49:00 Test Item Value Reference Range Interpretation Comments NA (test code = 138 mmol/L 135-145 9872792607) K (test code = 4.0 mmol/L 3.5-5 3406062116) CL (test code = 104 mmol/L 98-108 6148750324) CO2 TOTAL (test code = 26 mmol/L 23-31 1401263872) AGAP (test code = 2-16 8411969182) BUN (test code = 13 mg/dL 7-23 6134442044) GLUCOSE (test code = 86 mg/dL 70-110 2810076038) CREATININE (test code 0.51 mg/dL 0.5-1.04 = 5591668692) CALCIUM (test code = 8.9 mg/dL 8.6-10.6 2000654877) eGFR Calculation mL/min/1.73m2 (Non-) (test code = 9166744835) eGFR Calculation mL/min/1.73m2 () (test code = 8168703444) ANJALI (test code = ANJALI) Association of [...] or urine or abnormalities in imaging tests). [facility] (ALB, T.PRO, BILI T, BU/BC, ALT, AST, ALK PHOS)2020-05-12 20:49:00 Test Item Value Reference Range Interpretation Comments TOTAL BILI (test code = 3861901242) 0.5 mg/dL 0.1-1.1 BILI UNCON (test code = 7775226786) 0.4 mg/dL 0.1-1.1 BILI CONJ (test code = 9559167769) 0.0 mg/dL 0-0.3 T PROTEIN (test code = 2006956471) 7.7 g/dL 6.3-8.2 ALBUMIN (test code = 3283326427) 4.4 g/dL 3.5-5 ALK PHOS (test code = 9284468189) 80 U/L 34-122 ALTv (test code = 1742-6) 20 U/L 5-35 AST(SGOT) (test code = 4673581823) 26 U/L 13-40 Lab Interpretation (test code = Normal 52521-6) [facility] with [id number] 20:48:00 Test Item Value Reference Range Interpretation Comments WBC (test code = See_Comment [Automated 1774-2) message] The sy stem which generated this result transmitted reference range : 4.30 - 11.10 10*3/?L. The reference range was not used to interpret this result as normal/abnormal . RBC (test code = See_Comment [Automated 468-8) message] The sy stem which generated this [...] RDW-SD (test code = 46.5 fL 39-49.9 27228-3) RDW-CV (test code = 15.0 % 12-15.5 788-0) PLT (test code = See_Comment [Automated 837-3) message] The sy stem which generated this result transmitted reference range : 166 - 358 10*3/ ?L. The reference r sofía was not used to interpret this result as normal/abnormal . MPV (test code = 10.9 fL 9.5-12.9 10021-9) NRBC/100 WBC (test See_Comment [Automat ed code = 6957314271) message] The system which generated this result transmitted reference range : 0.0 - 10.0 /100 WBCs. The refer ence range was not u sed to interpret th is result as normal/abnormal . NRBC x10^3 (test code <0.01 See_Comment [Auto mated = 6265921156) message] The s ystem which generated this result transmitted reference range : 10*3/?L. The reference range was not used to interpret this result as normal/abnormal . GRAN MAT (NEUT) % 66.6 % (test code = 770-8) IMM GRAN % (test code 0.60 % = 4271729639) LYMPH % (test code = 23.5 % 736-9) MONO % (test code = 6.4 % 5905-5) EOS % (test code = 2.3 % 713-8) BASO % (test code = 0.6 % 706-2) GRAN MAT x10^3(ANC) 5.51 10*3/uL 1.88-7.09 (test code = 6543620423) IMM GRAN x10^3 (test 0.05 10*3/uL 0-0.06 code = 5487063203) LYMPH x10^3 (test code 1.94 10*3/uL 1.32-3.29 = 731-0) MONO x10^3 (test code 0.53 10*3/uL 0.33-0.92 = 742-7) EOS x10^3 (test code = 0.19 10*3/uL 0.03-0.39 711-2) BASO x10^3 (test code 0.05 10*3/uL 0.01-0.07 = 704-7) Lab Interpretation Abnormal (test code = 07496-2) [facility] 1 [id number] 20:31:35HISTORY: Chest pain. TECHNIQUE: Portable AP view of the chest is obtained. Comparison is madewith 01/15/2014 study. FINDINGS: No acute pneumonia. No pneumothorax or pleural effusion orpulmonary congestion detected. Cardiac size is within normal limits. CONCLUSIONS: No signs of acute cardiopulmonary disease.[facility], Radiant Results Inft User - 05/12/2020 2:32 PM CSTHISTORY: Chest pain.TECHNIQUE: Portable AP view of the chest is obtained. Comparison is madewith 01/15/2014 study.FINDINGS: No acute pneumonia. No pneumothorax or pleural effusion orpulmonary congestion detected. Cardiac size is within normal limits. CONCLUSIONS: No signs of acute cardiopulmonary disease.[facility] [id number] 20:28:00 Test Item Value Reference Range Interpretation Comments POCT PREG (test code = 1605) Negative On board controls acceptable with C present Line (test code = 3574) Lab Interpretation (test code = Normal 52258-7) [facility]"
[2022-10-25] MEDS ORDERED: ONDANSETRON 4 MG/2 ML VIAL ONE (04:14)
[2022-10-25] MEDS ORDERED: NA CHLORIDE 0.9% 1,000 ML ONE (04:14)
[2022-10-25] MEDS ORDERED: ADENOSINE 6 MG/ 2ML VIAL IV ONE (04:14)
[2022-10-25] MEDS ORDERED: METOPROLOL TARTRATE 5 MG/5 ML INJ IV ONE (04:21)
[2022-10-25 04:23] LABS: Hematocrit 33.2 % (36.0-45.0); Lymphocytes % 26.5 % (15.3-44.8); MCV 83.7 fL (80-100); MPV 8.8 fL (7.6-11.3); RBC Red Blood Cell Count 3.96 M/uL (3.86-4.86)
[2022-10-25 04:24] LABS: Protime INR 0.94
[2022-10-25] MEDS ORDERED: ASPIRIN EC 81 MG TAB PO ONE (04:33)
[2022-10-25] MEDS ORDERED: METOPROLOL TAR 25 MG TAB ONE (04:33)
[2022-10-25 04:41] LABS: ALT/SGPT 38 U/L (13-56); AST/SGOT 24 U/L (15-37); Albumin 3.4 g/dL (3.4-5.0); Alkaline Phosphatase 90 U/L (45-117); BUN Blood Urea Nitrogen 24 mg/dL (7-18); Bicarbonate 25 mEq/L (21-32); Bilirubin Total 0.2 mg/dL (0.2-1.0); Glomerular Filtration Rate 101 ml/min (=/>90); Glucose Level 124 mg/dL (74-106); Magnesium 2.3 mg/dL (1.6-2.4); NT PRO-BNP 41 pg/mL (<125); Potassium 3.6 mEq/L (3.5-5.1); Sodium Level 141 mEq/L (136-145); Troponin High Sensitivity 26.8 pg/mL (<58.9)
[2022-10-25 05:10] LABS: Bilirubin Direct < 0.1 mg/dL (0-0.2); Bilirubin Indirect, Calculated ND mg/dL (0.2-0.8)
--- NOTE | 2022-10-25 06:17 | ER ---
Nurse's Notes [facility] Name: Samra Marina Age: 37 yrs Sex: Female : 1985 Arrival Date: 10/25/2022 Time: 03:51 Bed 19 Private MD: Diagnosis: Supraventricular tachycardia Presentation: 10/25 04:02 Chief complaint: Patient states: I have chest pain that started about an hour ago and kd3 it feels tight and my heart and it feels like my heart is racing. I was here back in March for SVT and they gave me a medication to restart my heart. Coronavirus screen: Vaccine status: Patient reports being unvaccinated. Ebola Screen: No symptoms or risks identified at this time. Initial Sepsis Screen: Does the patient meet any 2 criteria? No. Patient's initial sepsis screen is negative. Does the patient have a suspected source of infection? No. Patient's initial sepsis screen is negative. Risk Assessment: Do you want to hurt yourself or someone else? Patient reports no desire to harm self or others. Onset of symptoms was October 25, 2022. 04:02 Method Of Arrival: Wheelchair kd3 04:02 Acuity: DARCIE 3 kd3 Triage Assessment: 04:19 General: Appears uncomfortable, Behavior is calm, cooperative. Pain: Complains of pain kd3 in chest. Neuro: Level of Consciousness is awake, alert, obeys commands, Oriented to person, place, time, situation. Cardiovascular: Patient's skin is warm and dry. Respiratory: Airway is patent Trachea midline Respiratory effort is even, unlabored. 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 - Social history:: Smoking status: Patient denies any tobacco usage or history of. - Family history:: not pertinent. Screenin:17 [facility] ED Fall Risk Assessment (Adult) History of falling in the last 3 months, sg5 including since admission. [facility] ED Fall Risk Assessment (Adult) History of falling in the last 3 months, including since admission No falls in past 3 months (0 pts). Abuse screen: Denies threats or abuse. Nutritional screening: No deficits noted. Tuberculosis screening: No symptoms or risk factors identified. Assessment: 04:17 General: Appears uncomfortable, Behavior is cooperative, appropriate for age, anxious. sg5 Pain: Complains of pain in chest Pain does not radiate. Pain began suddenly. Neuro: Level of Consciousness is awake, alert, obeys commands, Oriented to person, place, time, situation, Appropriate for age. Cardiovascular: Capillary refill < 3 seconds Patient's skin is warm and dry. Rhythm is SVT. Cardiovascular: Rhythm is. Respiratory: Airway is patent Trachea midline Respiratory effort is even, unlabored. GI: No signs and/or symptoms were reported involving the gastrointestinal system. : No signs and/or symptoms were reported regarding the genitourinary system. EENT: No signs and/or symptoms were reported regarding the EENT system. Derm: No signs and/or symptoms reported regarding the dermatologic system. Musculoskeletal: No signs and/or symptoms reported regarding the musculoskeletal system. Vital Signs: 04:00 Pulse 178; Resp 20; Pulse Ox 100% on R/A; sg5 04:19 BP 133 / 63; Pulse 87; Resp 18; Pulse Ox 99% on R/A; sg5 05:05 BP 100 / 67; Pulse 81; Resp 16; Temp 97.9; Pulse Ox 98% on R/A; sg5 06:26 BP 106 / 57; Pulse 80; Resp 18; Temp 98(O); Pulse Ox 97% on R/A; sg5 ED Course: 03:53 Patient arrived in ED. ja2 03:55 Chary Rodriguez RN is Primary Nurse. sg5 04:03 Lucas Stiles MD is Attending Physician. sp4 04:05 Triage completed. kd3 04:17 Inserted saline lock: 20 gauge in right antecubital area, using aseptic technique. sg5 Blood collected. Patient maintains SpO2 saturation greater than 95% on room air. 04:17 Patient has correct armband on for positive identification. Placed in gown. Bed in low sg5 position. Call light in reach. Side rails up X 1. Adult w/ patient. Valuables Given to family. pest control supervisor on. Pulse ox on. NIBP on. 04:19 Arm band placed on. EKG completed in triage. Results shown to . kd3 04:25 XRAY Chest (1 view) In Process Unspecified. EDMS 06:16 Tony Cason MD is Referral Physician. sp4 06:34 No provider procedures requiring assistance completed. IV discontinued. sg5 Administered Medications: 04:10 Drug: Adenocard IVP 12 mg Route: IVP; Site: right antecubital; sg5 04:10 Drug: NS 0.9% IV 1000 ml Route: IV; Rate: 1 bolus; Site: right antecubital; sg5 05:37 Follow up: IV Status: Completed infusion; IV Intake: 1000ml sg5 04:16 Drug: Ondansetron IVP 4 mg Route: IVP; Site: right antecubital; sg5 04:16 Drug: Metoprolol IVP 5 mg Route: IVP; Site: right antecubital; sg5 04:27 Drug: Aspirin PO Chewable Tablet 324 mg Route: PO; sg5 04:27 Drug: Metoprolol PO 25 mg Route: PO; sg5 Medication: 06:35 VIS not applicable for this client. sg5 Intake: 05:37 IV: 1000ml; Total: 1000ml. sg5 Outcome: 06:16 Discharge ordered by . sp4 06:34 Discharged to home ambulatory. sg5 06:34 Condition: good 06:34 Condition: good 06:34 Discharge instructions given to patient, Instructed on discharge instructions, follow up and referral plans. 06:36 Patient left the ED. sg5 Signatures: Dispatcher [employer] EDMS Ryley NanLouisa Paez RN RN [id number] Lucas Stiles MD MD sp4 Chary Rodriguez RN RN sg5 Corrections: (The following items were deleted from the chart) 04:05 04:00 Chief complaint: kd3 kd3 05:47 05:05 BP 100 / 67; Pulse 81bpm; Resp 16bpm; Pulse Ox 98% RA; sg5 sg5
--- NOTE | 2022-10-25 06:17 | EDPHYS ---
Physician Documentation [facility] Name: Samra Marina Age: 37 yrs Sex: Female : 1985 Arrival Date: 10/25/2022 Time: 03:51 Bed 19 Private MD: ED Physician Lucas Stiles HPI: 10/25 04:03 This 37 yrs old Female presents to ER via Unassigned with complaints of Chest sp4 Pain, Palpitations. 04:13 Patient presents with acute onset chest pain starting 1 hour prior to arrival. Patient sp4 has a history of SVT with previous management with adenosine. . 06:05 The patient has experienced a previous episode. Patient denied any palpitations or sp4 shortness of breath but reported feeling unwell overall. Pressure-like chest pain midsternal location. 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 - Social history:: Smoking status: Patient denies any tobacco usage or history of. - Family history:: not pertinent. ROS: 06:05 Constitutional: Negative for fever, chills, and weight loss, positive for generalized sp4 weakness Eyes: Negative for injury, pain, redness, and discharge, ENT: Negative for injury, pain, and discharge, Neck: Negative for injury, pain, and swelling, Cardiovascular: Negative for palpitations, and edema, positive for midsternal chest pain Respiratory: Negative for shortness of breath, cough, wheezing, and pleuritic chest pain, Abdomen/GI: Negative for abdominal pain, nausea, vomiting, diarrhea, and constipation, Back: Negative for injury and pain, : Negative for injury, bleeding, discharge, and swelling, MS/Extremity: Negative for injury and deformity, Skin: Negative for injury, rash, and discoloration, Neuro: Negative for headache, weakness, numbness, tingling, and seizure, Psych: Negative for depression, anxiety, Allergy/Immunology: Negative for hives, rash, and allergies Endocrine: Negative for neck swelling, polydipsia, polyuria, polyphagia, and weight changes Hematologic/Lymphatic: Negative for swollen nodes, abnormal bleeding, and unusual bruising Exam: 06:05 Constitutional: This is a well developed, well nourished patient who is awake, alert, sp4 overweight female, uncomfortable appearing, anxious appearing, rapid tachycardia on the monitor Head/Face: Normocephalic, atraumatic. Eyes: Pupils equal round and reactive to light, extra-ocular motions intact. Lids and lashes normal. Conjunctiva and sclera are not injected. Cornea within normal limits. Periorbital areas with no swelling, redness, or edema. ENT: Nares patent. No nasal discharge, no septal abnormalities noted. Tympanic membranes are normal and external auditory canals are clear. Oropharynx with no redness, swelling, or masses, exudates, or evidence of obstruction, uvula midline. Mucous membranes moist. Neck: Trachea midline, no thyromegaly or masses palpated, and no cervical lymphadenopathy. Supple, full range of motion without nuchal rigidity, or vertebral point tenderness. Chest/axilla: Normal chest wall appearance and motion. Nontender with no deformity. No lesions are appreciated. Cardiovascular: There is a rapid tachycardia rapid irregular tachycardia by palpation and on the monitor.. Normal PMI, no JVD. No pulse deficits. Respiratory: Lungs have equal breath sounds bilaterally, clear to auscultation and percussion. No rales, rhonchi or wheezes noted. No increased work of breathing, no retractions or nasal flaring. Abdomen/GI: Soft, non-tender, with normal bowel sounds. No distension or tympany. No guarding or rebound. No evidence of tenderness throughout. Obese abdomen Back: No spinal tenderness. No costovertebral tenderness. Skin: Warm, dry with normal turgor. Normal color with no rashes, no lesions, and no evidence of cellulitis. MS/ Extremity: Pulses equal, no cyanosis. Neurovascular intact. Full, normal range of motion. Neuro: Awake and alert, GCS 15, oriented to person, place, time, and situation. Cranial nerves II-XII grossly intact. Motor strength 5/5 in all extremities. Sensory grossly intact. Psych: Awake, alert, with orientation to person, place and time. Anxious appearing female 06:05 ECG was reviewed by the Attending Physician. EKG time 0401, there is rapid tachycardia, rapid narrow complex tachycardia at the rate of 176 consistent with supraventricular tachycardia. There is also ST depression leads V2 through V6. Also ST depression in leads II, 3, aVF 06:05 Repeat EKG reveals normal sinus rhythm at a rate of 86 this was at 0 420 after IV sp4 adenosine. KG reveals normal sinus rhythm at rate 86, no ST elevation or depression, normal EKG. patient was converted to normal sinus rhythm Vital Signs: 04:00 Pulse 178; Resp 20; Pulse Ox 100% on R/A; sg5 04:19 BP 133 / 63; Pulse 87; Resp 18; Pulse Ox 99% on R/A; sg5 05:05 BP 100 / 67; Pulse 81; Resp 16; Temp 97.9; Pulse Ox 98% on R/A; sg5 06:26 BP 106 / 57; Pulse 80; Resp 18; Temp 98(O); Pulse Ox 97% on R/A; sg5 Procedures: 06:05 Cardioversion: for treatment of SVT. Performed Chemical cardioversion with adenosine. . sp4 Under monitored conditions with cardiac monitoring placed defibrillator in place oxygen monitor in place patient was given 12 mg IV adenosine for SVT cardioversion . On the first attempt patient has converted to a sinus rhythm at the rate of just below 100. Patient was then given IV metoprolol to further slow down the heart rate. Patient tolerated procedure without complications. . MDM: 04:33 Patient medically screened. sp4 06:05 Differential diagnosis: abnormal EKG, acute pericarditis, anxiety, myocarditis, sp4 pericarditis, SVT, atrial fibrillation, atrial flutter. HEART Score: History: Slightly Suspicious (0), ECG: Normal (0), Age: < or = 45 years (0), Risk Factors: No Risk Factors Known (0), Troponin: < or = 1 x Normal Limit (0), Total Score = 0. Data reviewed: vital signs, nurses notes, old medical records, lab test result(s), EKG, radiologic studies, plain films. ED course: Labs today unremarkable, repeat EKG is normal, patient did not manifest with additional SVT. Chest x-ray is unremarkable. Patient stable for discharge home with p.o. metoprolol and referral to local hand tube bender for an office evaluation for ablation for SVT.. 10/25 04:04 Order name: Basic Metabolic Panel; Complete Time: 06:00 sp4 10/25 04:04 Order name: CBC with Diff; Complete Time: 06:00 sp4 10/25 04:04 Order name: LFT's; Complete Time: 06:00 sp4 10/25 04:04 Order name: Magnesium; Complete Time: 06:00 sp4 10/25 04:04 Order name: NT PRO-BNP; Complete Time: 06:00 sp4 10/25 04:04 Order name: PT-INR; Complete Time: 06:00 sp4 10/25 04:04 Order name: Troponin HS; Complete Time: 06:00 sp4 10/25 04:34 Order name: Test, Urine; Complete Time: 06:56 sp4 10/25 04:34 Order name: Urine Drug Screen; Complete Time: 06:56 sp4 10/25 04:04 Order name: XRAY Chest (1 view) sp4 10/25 04:04 Order name: EKG; Complete Time: 04:05 sp4 10/25 04:04 Order name: Cardiac monitoring; Complete Time: 04:33 sp4 10/25 04:04 Order name: EKG - Nurse/Tech; Complete Time: 04:21 sp4 10/25 04:04 Order name: IV Saline Lock; Complete Time: 04:21 sp4 10/25 04:04 Order name: Labs collected and sent; Complete Time: 05:39 sp4 10/25 04:04 Order name: O2 Per Protocol; Complete Time: 05:39 sp4 10/25 04:04 Order name: O2 Sat Monitoring; Complete Time: 05:39 sp4 EC:05 Rate is 176 beats/min. Rhythm is regular, SVT. sp4 Administered Medications: 04:10 Drug: Adenocard IVP 12 mg Route: IVP; Site: right antecubital; sg5 04:10 Drug: NS 0.9% IV 1000 ml Route: IV; Rate: 1 bolus; Site: right antecubital; sg5 05:37 Follow up: IV Status: Completed infusion; IV Intake: 1000ml sg5 04:16 Drug: Ondansetron IVP 4 mg Route: IVP; Site: right antecubital; sg5 04:16 Drug: Metoprolol IVP 5 mg Route: IVP; Site: right antecubital; sg5 04:27 Drug: Aspirin PO Chewable Tablet 324 mg Route: PO; sg5 04:27 Drug: Metoprolol PO 25 mg Route: PO; sg5 Disposition Summary: 10/25/22 06:16 Discharge Ordered Location: Home sp4 Condition: Stable sp4 Problem: new sp4 Symptoms: have improved sp4 Diagnosis - Supraventricular tachycardia sp4 Followup: sp4 - With: Tony Cason MD - When: 10 - 14 days - Reason: Recheck today's complaints Discharge Instructions: - Discharge Summary Sheet sp4 - Supraventricular Tachycardia, Adult, [id number] sp4 Forms: - [email or web address] sp4 Prescriptions: - metoprolol succinate 25 mg Oral Tablet, Extended Release 24 hr - take 1 tablet by ORAL route daily; 30 tablet; Refills: 0, Product Selection sp4 Permitted Signatures: Dispatcher [employer] Louisa Ariza, RN RN kd3 Lucas Stiles MD MD sp4 Chary Rodriguez RN RN sg5
[2022-10-25 06:28] LABS: Barbiturates NEGATIVE (NEGATIVE); Benzodiazepines NEGATIVE (NEGATIVE); Cocaine NEGATIVE (NEGATIVE); METHAMPHETAM NEGATIVE (NEGATIVE); Methadone NEGATIVE (NEGATIVE); Opiates NEGATIVE (NEGATIVE); Phencyclidine NEGATIVE (NEGATIVE); THC Cannibis NEGATIVE (NEGATIVE)
[2022-10-25 07:04] VITALS: BP 106/57; TEMP 98; O2SAT 97
--- NOTE | 2022-10-25 12:13 | EKG ---
Test Date: 2022-10-25 Test Time: 04:01:34 Stone Rougher: BENI MEASUREMENT RESULTS: Intervals: Rate: 176 [place]: QRSD: 72 QT: 266 QTc: 455 [place]: P: [place]: QRS: 77 T: -65 INTERPRETIVE STATEMENTS: Supraventricular tachycardia Marked ST abnormality, possible inferior subendocardial injury Abnormal ECG Compared to ECG 05/18/2022 17:21:46 Sinus rhythm no longer present ST (T wave) deviation still present Electronically Signed On 10-25-22 12:11:56 CDT by Tony Cason
--- NOTE | 2022-10-25 17:38 | RAD REPORT ---
EXAM DESCRIPTION: Chest Single View CLINICAL HISTORY: CHEST PAIN TECHNIQUE: AP chest COMPARISON: None available for comparison FINDINGS: CHEST: Heart: The cardiomediastinal silhouette is within normal limits. Lungs: No focal consolidation. Decreased inspiration. Devices overlying the patient's chest. Mediastinum: Unremarkable Pleura: No appreciable effusion. No pneumothorax. Bones: Intact IMPRESSION: Decreased inspiration with no evidence of acute cardiopulmonary disease. Electronically signed by: Anderson Naylor MD 10/25/2022 6:11 AM CDT Due to temporary technical issues with the PACS/Fluency reporting system, reports are being signed by the in house radiologists without review as a courtesy to insure prompt reporting. The interpreting radiologist is fully responsible for the content of the report.
--- NOTE | 2022-10-27 16:25 | EKG ---
Test Date: 2022-10-25 Test Time: 04:20:53 Call Center Rn: BENI MEASUREMENT RESULTS: Intervals: Rate: 86 AK: 170 QRSD: 74 QT: 362 QTc: 433 [place]: P: 65 AK: 170 QRS: 82 T: 54 INTERPRETIVE STATEMENTS: Normal sinus rhythm Normal ECG Compared to ECG 10/25/2022 04:01:34 Supraventricular tachycardia no longer present ST (T wave) deviation no longer present Electronically Signed On 10-27-22 16:21:14 CDT by Tony Cason
== END 2022-10-25 06:36 | disposition home or self-care (01) ==
LOC: ER 03:51
PROC: 5A2204Z Restoration of Cardiac Rhythm, Single (ICD-10-PCS; principal; 2022-10-25)
DX: I47.1 Supraventricular tachycardia (principal)
CPT/HCPCS: 36415; 71045; 80048; 80076; 80307; 81025; 83735; 83880; 84484; 85025; 85610; 92960; 93005; 96361; 96374; 96375; 99285; J0153; J2405; J7030

== ENCOUNTER 2023-09-03 08:50 | Emergency (ER) | payer SELFPAY ==
--- OUTSIDE RECORDS SUMMARY | 2023-09-03 08:54 | XMS REPORT | Continuity of Care Document ---
Author Name Unknown Address [address] [place] [address] [facility] thconnect Address [address] [place] [address] Care Team Providers Care Business Center Representative Name Role Phone Pcp, Patient Does Not Have A Primary Care Physic sonia Zhanna Ulloa Attending Clinician HOLLY HOFFMAN Attending Clinician Unavailable Holly Jimenez Attending Clinician [phone] Adriana Woo Attending Clinician [phone] Problems Condition Name Condition Details Condition Category Status Onset Date Resolution Date Last Treatment Date Treating Clinician Comments Source Encounter for routine gynecologi yazmin examinatio n Encounter for routine gynecologi yazmin examinatio n Disease Active 2013-04 00:00: 00 Overview: Formattin g of this note might be different from the original. 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 ICD10 Diagnosis Term Magazine Writer Utility [facility] Acid reflux Acid reflux Disease Active 2013-04 00:00: 00 [facility] mood disturbanc e mood disturbanc e Disease Active 2013-04 00:00: 00 [facility] Tubal ligation status Tubal ligation status Disease Active 2013-04 0 00:00: 00 [facility] Wound dehiscence , Wound dehiscence , Disease Active 01-08 00:00: 00 [facility] Morbid obesity Morbid obesity Disease Active 08-29 00:00: 00 [facility] Allergies, Adverse Reactions, Alerts Allergy Name Allergy Type Status Severity Reaction(s) Onset Date Inactive Date Treating Clinician Comments Source NO KNOWN ALLERGIE S Drug Class Active [facility] Social History Social Habit Start Date Stop Date Quantity Comments Source Exposure to SARS-CoV-2 (event) Not sure [facility] Alcohol intake 2021-02-16 00:00:00 2021-02-16 00:00:00 Current non-drinker of alcohol (finding) [facility] Tobacco use and exposure 2018-07-14 00:00:00 2018-07-14 00:00:00 Never used [facility] Sex Assigned At 1985 00:00:00 1985 00:00:00 [facility] Smoking Status Start Date Stop Date Source Never smoker [facility] Medications Ordered Medication Name Filled Medication Name Start Date Stop Date Current Medication? Ordering Clinician Indication Dosage Frequency Signature (SIG) Comments Components Source cetirizine (ZYRTEC) 10 mg tablet 2020-04 00:00: 00 03-19 05:59 :00 No [id number] 10mg Take 1 tablet by mouth daily for 30 days. [facility] codeine-gua ifenesin 10-100 mg/5 mL oral solution 2020-04 00:00: 00 02-24 04:59 :00 No 10mL Take 10 mL by mouth every 6 (six) hours as needed for Cough for up to 7 days. Indication s: cough [facility] NaCl 0.9% (NS) bolus infusion 1,000 mL 05-12 19:45: 00 05-12 21:00 :00 No 1000mL at 999 mL/hr, 1,000 mL, IV Infusion, ONCE, 1 dose, Clara 05/12/20 at 1345, DREW [facility] benzonatate 100 mg capsule 05-12 00:00: 00 Yes [id number] 100mg Take 1 capsule by mouth 3 (three) times daily as needed for Cough for up to 15 doses. [facility] methylPREDN ISolone (MEDROL, ARCENIO,) 4 mg tablets 05-12 00:00: 00 Yes [id number] Take by mouth SEE-INSTRU CTIONS. follow package directions [facility] ibuprofen 800 mg tablet 05-12 00:00: 00 Yes [id number] 800mg Take 1 tablet by mouth every 8 (eight) hours as needed for Pain (scale 4-6) for up to 30 doses. [facility] traMADOL (ULTRAM) 50 mg tablet 07-14 00:00: 00 Yes [id number] 50mg Take 1 tablet by mouth every 6 (six) hours as needed for Pain (scale 7-10). [facility] ondansetron (ZOFRAN) 4 mg tablet 07-14 00:00: 00 Yes [id number] 4mg Take 1 tablet by mouth every 8 (eight) hours as needed for Nausea and Vomiting (N/V). [facility] meclizine 25 mg tablet 05-07 00:00: 00 Yes 25mg Take 1 tablet by mouth every 6 (six) hours. [facility] traMADOL (ULTRAM) 50 mg tablet 01-08 00:00: 00 Yes 50mg Take 1 Tab by mouth every 6 (six) hours as needed for Pain (scale 4-6). [facility] Vital Signs Vital Name Observation Time Observation Value Comments S suzy Systolic blood pressure 2021-02-17 01:22:00 122 mm[Hg] [facility] Diastolic blood pressure 2021-02-17 01:22:00 82 mm[Hg] [facility] Heart rate 2021-02-17 01:22:00 84 /min Evelia [facility] Body temperature 2021-02-17 01:22:00 37 Jesica [facility] Respiratory rate 2021-02-17 01:22:00 18 /min [facility] Body height 2021-02-17 01:22:00 154.9 cm [facility] Body weight 2021-02-17 01:22:00 127.007 kg [facility] BMI 2021-02-17 01:22:00 52.91 kg/m2 [facility] Oxygen saturation in Arterial blood by Pulse oximetry 2021-02-17 01:22:00 97 /min [facility] Systolic blood pressure 2020-05-12 22:30:00 127 mm[Hg] [facility] Diastolic blood pressure 2020-05-12 22:30:00 62 mm[Hg] [facility] Heart rate 2020-05-12 22:30:00 68 /min [facility] Respiratory rate 2020-05-12 22:30:00 18 /min [facility] Oxygen saturation in Arterial blood by Pulse oximetry 2020-05-12 22:30:00 100 /min [facility] Body temperature 2020-05-12 19:01:00 37.28 Jesica [facility] Body weight 2020-05-12 19:01:00 127.007 kg [facility] BMI 2020-05-12 19:01:00 52.91 kg/m2 [facility] Procedures Procedure Date / Time Performed Performing Clinicia n Source XR CHEST 2 2021-02-17 01:40:40 Zhanna Rosales [facility] POCT TEST 2020-05-12 20:28:00 Emmett Lora [facility] XR CHEST 1 2020-05-12 20:27:54 Adriana Bowling [facility] TROPONIN I 2020-05-12 20:22:00 Adriana Bowling [facility] HEPATIC FUNCTION PANEL ([id number]) (ALB,T.PRO,BILI T,BU/BC,ALT,AST,ALK PHOS) 2020-05-12 20:22:00 Adriana Bowling [facility] BASIC METABOLIC PANEL (NA, K, CL, CO2, GLUCOSE, BUN, CREATININE, CA) 2020-05-12 20:22:00 Adriana Bowling [facility] CBC WITH DIFF 2020-05-12 20:22:00 Adriana Bowling [facility] URINALYSIS 2020-05-12 20:22:00 Adriana Bowling [facility] CONSENT/REFUSAL FOR DIAGNOSIS AND TREATMENT 2020-05-12 18:46:55 Doctor Unassigned, [place] [facility] NOTICE OF PRIVACY PRACTICES 2020-05-12 18:46:37 Doctor Unassigned, [place] [facility] Encounters Start Date/Time End Date/Time Encounter Type Admission Type Attending Clinicians Care Facility Care Department Encounter ID Source 2021-02-18 18:36:38 Emergency [facility] [id number] [facility] 2023-04-27 13:44:24 2023-04-27 13:44:24 Outpatient [facility] [id number] Matthew Lorenzo 2023-04-26 17:13:36 2023-04-26 17:13:36 Outpatient [facility] [id number] Matthew Lorenzo 2021-03-09 00:00:00 2021-03-09 00:00:00 [facility] [id number] [facility] 2021-02-16 20:29:09 2021-02-16 23:59:00 [facility] [id number] [facility] 2021-02-16 20:20:00 2021-02-16 20:54:13 Outpatient HOLLY SOTO [facility] [id number] [facility] 2021-02-16 20:19:38 2021-02-16 20:54:13 Urgent Care Zhanna Rosales [facility] [id number] [facility] 2021-02-16 20:20:00 2021-02-16 20:20:00 Outpatient R [facility] [id number] [facility] 2020-05-12 13:13:00 2020-05-12 16:54:00 Emergency Adriana Bowling [facility] [id number] [facility] Results Test Description Test Time Test Comments Results Result Co mments Source VITAMIN D, 25 [id number] 00:48:01* Test Item Value Reference Range Interpretation Comme [facility] VITAMIN D, 25 OH (test code = 4958) 14 NG/ML SEE BELOW L EFFECTIVE 2022, PLEASE NOTE NEW METHODOLOGY IS ELECTROCHEMILUMINESCENCE BINDING ASSAY. NOTE: 25-HYDROXYVITAMIN D ASSAY INCLUDES 25-HYDROXYVITAMIN D2 AND D3. INTERPRETIVE RANGES PEDIATRIC (<17 YEARS) . . . . . . . . . . . NG/ML 20-100ADULT: INSUFFICIENT . . . . . . . . . . . . . . NG/ML <20 SUBOPTIMAL . . . . . . . . . . . . . . . NG/ML 20-29 OPTIMAL . . . . . . . . . . . . . . . . . NG/ML 30-100 [id number] 00:47:18* Test Item Value Reference Range Interpretation Comme [facility] FERRITIN (test code = 2075) 12 NG/ML 13-200 L UNLESS OTHERWISE INDICATED, ALL TESTING PERFORMED AT [facility] [address] [place] [address] MILK HANDLER: GUDELIA WELSH M.D. CLIA NUMBER [id number] [place]. [id number] COMPREHENSIVE METABOLIC [id number] 00:08:55* Test Item Value Reference Range Interpretation Comme [facility] GLUCOSE (test code = 2217) 126 MG/DL 70-99 H BUN (test code = 2207) 18 MG/DL 6-20 CREATININE (test code = 2213) 0.61 MG/DL 0.60-1.30 eGFR (2020 CKD-EPI) (test code = 36213) 119 ML/MIN/1.73 >60 CALC BUN/CREAT (test code = 2234) 30 RATIO 6-28 H SODIUM (test code = 2230) 147 MEQ/L 133-146 H POTASSIUM (test code = 2227) 4.2 MEQ/L 3.5-5.4 CHLORIDE (test code = 2214) 110 MEQ/L 95-107 H CARBON DIOXIDE (test code = 2205) 25 MEQ/L 19-31 CALCIUM (test code = 2208) 9.3 MG/DL 8.5-10.5 PROTEIN, TOTAL (test code = 2228) 7.2 G/DL 6.1-8.3 ALBUMIN (test code = 2200) 4.4 G/DL 3.5-5.2 CALC GLOBULIN (test code = 2239) 2.8 G/DL 1.9-3.7 CALC A/G RATIO (test code = 2233) 1.6 RATIO 1.0-2.6 BILIRUBIN, TOTAL (test code = 2206) 0.3 MG/DL <=1.2 ALKALINE PHOSPHATASE (test code = 2203) 87 U/L 40-112 AST (test code = 2217) 20 U/L 9-40 ALT (test code = 2218) 23 U/L 5-40 HEMOGLOBIN [id number] 06:07:43* Test Item Value Reference Range Interpretation Comme nts HEMOGLOBIN A1c (test code = 67135) 5.7 % 4.2-5.6 H [employer] GUIDELINES FOR HGB A1C: PREDIABETES/INCREASED RISK . . . . . . . 5.7-6.4% DIAGNOSIS OF DIABETES . . . . . . . . . >=6.5% WITH CONFIRMATION OR APPROPRIATE SYMPTOMS NOTE: ASSAY MAY BE AFFECTED BY HEMOGLOBINOPATHIES (SICKLE CELL ANEMIA, S-C DISEASE, OTHERS) OR ARTIFICIALLY LOWERED BY DECREASED RED CELL SURVIVAL (HEMOLYTIC ANEMIAS, BLOOD LOSS, ETC.). CONSIDER ALTERNATE TESTING OR LABORATORY CONSULTATION. CBC W/AUTO DIFF WITH [id number] 03:46:37* Test Item Value Reference Range Interpretation Comme nts WBC (test code = 1001) 7.4 K/UL 3.5-11.0 RBC (test code = 1002) 4.30 M/UL 3.80-5.40 HEMOGLOBIN (test code = 1003) 11.2 G/DL 11.5-15.5 L HEMATOCRIT (test code = 1004) 35.1 % 34.0-45.0 MCV (test code = 1005) 81.6 fL 80.0-99.0 MCH (test code = 1006) 26.0 PG 25.0-33.0 MCHC (test code = 1007) 31.9 G/DL 31.0-36.0 RDW (test code = 1038) 15.2 % 11.5-15.0 H NEUTROPHILS (test code = 1008) 72.4 % LYMPHOCYTES (test code = 1010) 19.5 % MONOCYTES (test code = 1011) 5.1 % EOSINOPHILS (test code = 1012) 1.8 % BASOPHILS (test code = 1013) 0.8 % IMMATURE GRANULOCYTES (test code = 1036) 0.4 % NUCLEATED RBCS (test code = 1065) 0.0 /100 WBC'S See_Comment [Automated messa ge] The system which generated this result transmitted reference range: 0.0. The reference range was not used to interpret this result as normal/abnormal. PLATELET COUNT (test code = 1015) 256 K/UL 130-400 ABSOLUTE NEUTROPHILS (test code = 1066) 5.35 K/UL 1.50-7.50 ABSOLUTE LYMPHOCYTES (test code = 1067) 1.44 K/UL 1.00-4.00 ABSOLUTE MONOCYTES (test code = 1068) 0.38 K/UL 0.20-1.00 ABSOLUTE EOSINOPHILS (test code = 1040) 0.13 K/UL 0.00-0.50 ABSOLUTE BASOPHILS (test code = 1069) 0.06 K/UL 0.00-0.20 ABS IMMATURE GRANULOCYTES (test code = 1020) 0.03 K/UL 0.00-0.10 ABS NUCLEATED RBCS (test code = 73146) 0.00 K/UL 0.00-0.11 Troponin [id number] 21:11:00* Test Item Value Reference Range Interpretation Comme nts TROPONIN I (test code = 2306374176) <0.012 See_Comment [Automated message] The system which generated this result transmitted reference range: <=0.034 ng/mL. The reference range was not used to interpret this result as normal/abnormal. ANJALI (test code = ANJALI) Equal or [...] use of biotin. ? Lab Interpretation (test code = 45412-3) [facility]* Test Item Value Reference Range Interpretation Comme nts APPEARANCE (test code = 7131473141) Hazy Clear A COLOR (test code = 7503476820) Yellow Yellow PH (test code = 8202134308) 4.8-8.0 SP GRAVITY (test code = 2703647003) 1.003-1.030 GLU U QUAL (test code = 1954716859) Normal Normal BLOOD (test code = 4505391310) Negative Negative KETONES (test code = 1835799895) Negative Negative PROTEIN (test code = 2887-8) Negative Negative UROBILIN (test code = 5255515085) Normal Normal BILIRUBIN (test code = 2141894109) Negative Negative NITRITE (test code = 1131666876) Negative Negative LEUK ROLF (test code = 5537198095) Negative Negative RBC/HPF (test code = 5452976449) See_Comment [Automated messa ge] The system which generated this result transmitted reference range: 0 - 3 HPF. The reference range was not used to interpret this result as normal/abnormal. WBC/HPF (test code = 5790148494) <1 See_Comment [Automated [employer]] The system which generated this result transmitted reference range: 0 - 5 HPF. The reference range was not used to interpret this result as normal/abnormal. BACTERIA (test code = 7593909673) Negative Negative MUCOUS (test code = 6940237369) Slight Negative LPF A SQ EPITH (test code = 4976129265) HPF Lab Interpretation (test code = 58685-4) Abnormal [facility] Metabolic Panel (NA, K, CL, CO2, GLUCOSE, BUN, CREATININE, CA)2020-05-12 20:49:00* Test Item Value Reference Range Interpretation Comme nts NA (test code = 9330589709) 138 mmol/L 135-145 K (test code = 9268786695) 4.0 mmol/L 3.5-5 CL (test code = 7011352611) 104 mmol/L 98-108 CO2 TOTAL (test code = 6574083259) 26 mmol/L 23-31 AGAP (test code = 8354770942) 2-16 BUN (test code = 0949972769) 13 mg/dL 7-23 GLUCOSE (test code = 9255839491) 86 mg/dL 70-110 CREATININE (test code = 3501189169) 0.51 mg/dL 0.5-1.04 CALCIUM (test code = 8781231397) 8.9 mg/dL 8.6-10.6 eGFR Calculation (Non-) (test code = 0697304830) mL/min/1.73m2 eGFR Calculation () (test code = 9297404783) mL/min/1.73m2 ANJALI (test code = ANJALI) Association of [...] or urine or abnormalities in imaging tests). [facility] (ALB, T.PRO, BILI T, BU/BC, ALT, AST, ALK PHOS)2020-05-12 20:49:00* Test Item Value Reference Range Interpretation Comme nts TOTAL BILI (test code = 8868983299) 0.5 mg/dL 0.1-1.1 BILI UNCON (test code = 1552695536) 0.4 mg/dL 0.1-1.1 BILI CONJ (test code = 8304921201) 0.0 mg/dL 0-0.3 T PROTEIN (test code = 7556282700) 7.7 g/dL 6.3-8.2 ALBUMIN (test code = 2415555531) 4.4 g/dL 3.5-5 ALK PHOS (test code = 1706125261) 80 U/L 34-122 ALTv (test code = 1742-6) 20 U/L 5-35 AST(SGOT) (test code = 5618369064) 26 U/L 13-40 Lab Interpretation (test cod e = 47478-5) Normal [facility] with [id number] 20:48:00* Test Item Value Reference Range Interpretation Comme nts WBC (test code = 6690-2) See_Comment [Automated messa ge] The system which generated this result transmitted reference range: 4.30 - 11.10 10*3/?L. The reference range was not used to interpret this result as normal/abnormal. RBC (test code = 789-8) See_Comment [Automated [employer] ge] The system which generated this result transmitted reference range: 3.93 - 5.25 10*6/?L. The reference range was not used to interpret this result as normal/abnormal. HGB (test code = 718-7) 11.7 g/dL 11.6-15 HCT (test code = 4544-3) 37.4 % 35.7-45.2 MCV (test code = 787-2) 85.4 fL 80.6-95.5 MCH (test code = 785-6) 26.7 pg 25.9-32.8 MCHC (test code = 786-4) 31.3 g/dL 31.6-35.1 L RDW-SD (test code = 14640-5) 46.5 fL 39-49.9 RDW-CV (test code = 788-0) 15.0 % 12-15.5 PLT (test code = 777-3) See_Comment [Automated [employer] ge] The system which generated this result transmitted reference range: 166 - 358 10*3/?L. The reference range was not used to interpret this result as normal/abnormal. MPV (test code = 11140-8) 10.9 fL 9.5-12.9 NRBC/100 WBC (test code = 7074435173) See_Comment [Automated [employer] ssage] The system which generated this result transmitted reference range: 0.0 - 10.0 /100 WBCs. The reference range was not used to interpret this result as normal/abnormal. NRBC x10^3 (test code = 1029791697) <0.01 See_Comment [Automated [employer] ge] The system which generated this result transmitted reference range: 10*3/?L. The reference range was not used to interpret this result as normal/abnormal. GRAN MAT (NEUT) % (test code = 770-8) 66.6 % IMM GRAN % (test code = 9852458862) 0.60 % LYMPH % (test code = 736-9) 23.5 % MONO % (test code = 5905-5) 6.4 % EOS % (test code = 713-8) 2.3 % BASO % (test code = 706-2) 0.6 % GRAN MAT x10^3(ANC) (test code = 9681158810) 5.51 10*3/uL 1.88-7.09 IMM GRAN x10^3 (test code = 1990728619) 0.05 10*3/uL 0-0.06 LYMPH x10^3 (test code = 731-0) 1.94 10*3/uL 1.32-3.29 MONO x10^3 (test code = 742-7) 0.53 10*3/uL 0.33-0.92 EOS x10^3 (test code = 711-2) 0.19 10*3/uL 0.03-0.39 BASO x10^3 (test code = 704-7) 0.05 10*3/uL 0.01-0.07 Lab Interpretation (test code = 75748-3) Abnormal [facility] 1 [id number] 20:31:35HISTORY: Chest pain. TECHNIQUE: Portable AP view of the chest is obtained. Comparison is madewith 01/15/2014 study. FINDINGS: No acute pneumonia. No pneumothorax or pleural effusion orpulmonary congestion detected. Cardiac size is within normal limits. CONCLUSIONS: No signs of acute cardiopulmonary disease.[facility], Radiant Results Inft User - 05/12/2020 2:32 PM CSTHISTORY: Chest pain.TECHNIQUE: Portab le AP view of the chest is obtained. Comparison is madewith 01/15/2014 study.FINDINGS: No acute pneumonia. No pneumothorax or pleural effusion orpulmonary congestion detected. Cardiac size is within normal limits. CONCLUSIONS: No signs of acute cardiopulmonary disease.[facility] [id number] 20:28:00* Test Item Value Reference Range Interpretation Comme nts POCT PREG (test code = 1605) Negative On board controls acceptable with C Line (test code = 3574) present Lab Interpretation (test cod e = 96650-7) Normal [facility]"
--- NOTE | 2023-09-03 09:41 | RAD REPORT ---
EXAM DESCRIPTION: CT - Head Brain Wo Cont - 09/03/2023 9:21 am CLINICAL HISTORY: Dizziness COMPARISON: 2016 TECHNIQUE: Computed axial tomography of the head was obtained. IV contrast was not requested. All CT scans are performed using dose optimization technique as appropriate and may include automated exposure control or mA/KV adjustment according to patient size. FINDINGS: An intracranial bleed is not seen The ventricles are normal in caliber No significant hypodense areas within the brain visualized No extra-axial fluid collection is noted. Fluid within the sinuses/ mastoids is not seen IMPRESSION: No acute intracranial abnormality is seen If patient's symptoms persist MRI of the brain would be recommended
[2023-09-03] MEDS ORDERED: ONDANSETRON 4 MG/2 ML VIAL ONE (09:46)
[2023-09-03] MEDS ORDERED: MECLIZINE HCL 12.5 MG TAB ONE (09:46)
[2023-09-03] MEDS ORDERED: NA CHLORIDE 0.9% 1,000 ML ONE (09:47)
--- NOTE | 2023-09-03 10:11 | RAD REPORT ---
EXAM DESCRIPTION: USCarotid Artery Bilateral09/03/2023 9:34 am CLINICAL HISTORY: Dizziness COMPARISON: None FINDINGS: The velocity of the right internal carotid artery equals 104 cm/sec. The right ICA/CCA rat io normal The velocity of the left internal carotid artery equals 100 to cm/sec. The left ICA/CCA ratio normal No plaque visualized within the arteries The vertebral arteries demonstrate antegrade flow NASCET criteria used. Mild 0-49% stenosis Moderate 50-69% stenosis Severe 70-99% stenosis IMPRESSION: Unremarkable exam
--- NOTE | 2023-09-03 10:20 | RAD REPORT ---
EXAM DESCRIPTION: Chelsie Single View09/03/2023 9:33 am CLINICAL HISTORY: Cough COMPARISON: FINDINGS: The lungs appear clear of acute infiltrate. The heart is normal size IMPRESSION: No acute abnormalities displayed
[2023-09-03 11:01] LABS: Absolute Basophils 0.1 K/uL (0-0.5); Absolute Eosinophils 0.1 K/uL (0-0.5); Absolute Lymphocytes (CBC) 1.5 K/uL (0.7-4.9); Absolute Monocytes 0.4 K/uL (0.1-1.3); Absolute Neutrophil 4.8 K/uL (1.8-8.0); Basophils % 0.9 % (0-1.3); Eosinophils % 1.5 % (0-4.4); Hemoglobin 11.6 g/dL (12.0-15.0); Lymphocytes % 21.8 % (15.3-44.8); MCH 27.5 pg (27.0-35.0); MCHC 32.2 g/dL (32.0-36.0); MCV 85.3 fL (80-100); Monocytes % 6.2 % (3.3-12.3); Neutrophils % 69.6 % (41.7-73.7); Nucleated Red Blood Cells % 0.1 % (0-0); Platelets 233 thou/uL (152-406); RBC Red Blood Cell Count 4.22 M/uL (3.86-4.86); Red Cell Distribution Width 16.1 % (12.1-15.2)
[2023-09-03 11:03] LABS: PT Prothrombin Time 11.1 SECONDS (9.5-12.5); Protime INR 1.01
[2023-09-03 11:12] LABS: Specific Gravity 1.024 (1.005-1.030); Urine Bacteria None Seen /HPF (<20); Urine Bilirubin NEGATIVE (Negative); Urine Blood Negative (Negative); Urine Clarity Turbid (Clear); Urine Color Light-Yellow (Yellow); Urine Culture Reflex Order NOT NEEDED; Urine Glucose NEGATIVE (Negative); Urine Ketones NEGATIVE (Negative); Urine Microscopic Reflex YN ORDER UMIC; Urine Nitrite NEGATIVE (Negative); Urine Protein NEGATIVE (Negative); Urine RBC <5 /HPF (None Seen); Urine Urobilinogen Normal (Normal); Urine WBC <5 /HPF (<5); Urine pH 6.5 (5.0-7.0)
[2023-09-03 11:17] LABS: Specific Gravity 1.024 (1.005-1.030)
[2023-09-03 11:28] LABS: ALT/SGPT 28 U/L (13-56); AST/SGOT 13 U/L (15-37); Albumin 3.5 g/dL (3.4-5.0); Albumin/Globulin Ratio 0.9 (1.1-1.8); Alkaline Phosphatase 78 U/L (45-117); Anion Gap 6.8 mEq/L (5.0-15.0); BUN Blood Urea Nitrogen 21 mg/dL (7-18); Bicarbonate 26 mEq/L (21-32); Bilirubin Direct < 0.2 mg/dL (0-0.2); Bilirubin Indirect, Calculated 0.1 mg/dL (0.2-0.8); Bilirubin Total 0.3 mg/dL (0.2-1.0); Glomerular Filtration Rate 120 ml/min (=/>90); Glucose Level 97 mg/dL (74-106); Lipase 24 U/L (13-75); Magnesium 2.1 mg/dL (1.6-2.4); NT PRO-BNP 6 pg/mL (<125); Potassium 3.8 mEq/L (3.5-5.1); Protein, Total 7.5 g/dL (6.4-8.2); Sodium Level 137 mEq/L (136-145); Troponin High Sensitivity 3.1 pg/mL (<58.9)
--- NOTE | 2023-09-03 11:42 | EDPHYS ---
Physician Documentation [facility] Name: Samra Marina Age: 37 yrs Sex: Female : 1985 Arrival Date: 09/03/2023 Time: 08:50 Bed 19 Private MD: DAO Physician Varghese Wolf HPI: 09/02 10:16 This 37 yrs old Female presents to ER via Ambulatory with complaints of denys Dizziness, Nausea/Vomiting. 10:16 The patient presents with dizziness, sense of spinning. Onset: The symptoms/episode denys began/occurred this morning. Context: occurred at home, occurred while the patient was at rest. Modifying factors: The symptoms are alleviated by closing eyes, holding head still, the symptoms are aggravated by movement of head, changing position. Associated signs and symptoms: Pertinent positives: nausea, vomiting. Severity of symptoms: in the emergency department the symptoms are unchanged. Patient's baseline: Neuro: alert and fully oriented. The patient has not experienced similar symptoms in the past. 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 - Infectious Disease History:: Denies. - Social history:: Smoking status: Patient denies any tobacco usage or history of. - Family history:: not pertinent. ROS: 10:16 Constitutional: Negative for fever, chills, and weight loss, Eyes: Negative for injury, denys pain, redness, and discharge, ENT: Negative for injury, pain, and discharge, Neck: Negative for injury, pain, and swelling, Cardiovascular: Negative for chest pain, palpitations, and edema, Respiratory: Negative for shortness of breath, cough, wheezing, and pleuritic chest pain, Abdomen/GI: Negative for abdominal pain, nausea, vomiting, diarrhea, and constipation, Back: Negative for injury and pain, : Negative for injury, bleeding, discharge, and swelling, MS/Extremity: Negative for injury and deformity, Skin: Negative for injury, rash, and discoloration, Psych: Negative for depression, anxiety, suicide ideation, homicidal ideation, and hallucinations, Allergy/Immunology: Negative for hives, rash, and allergies, Endocrine: Negative for neck swelling, polydipsia, polyuria, polyphagia, and marked weight changes, Hematologic/Lymphatic: Negative for swollen nodes, abnormal bleeding, and unusual bruising, 10:16 Abdomen/GI: Positive for nausea and vomiting, 10:16 Neuro: Positive for dizziness, Exam: 10:16 Constitutional: This is a well developed, well nourished patient who is awake, alert, denys and in no acute distress. Head/Face: Normocephalic, atraumatic. Eyes: Pupils equal round and reactive to light, extra-ocular motions intact. Lids and lashes normal. Conjunctiva and sclera are non-icteric and not injected. Cornea within normal limits. Periorbital areas with no swelling, redness, or edema. ENT: Nares patent. No nasal discharge, no septal abnormalities noted. Tympanic membranes are normal and external auditory canals are clear. Oropharynx with no redness, swelling, or masses, exudates, or evidence of obstruction, uvula midline. Mucous membranes moist. Neck: Trachea midline, no thyromegaly or masses palpated, and no cervical lymphadenopathy. Supple, full range of motion without nuchal rigidity, or vertebral point tenderness. No Meningismus. Chest/axilla: Normal chest wall appearance and motion. Nontender with no deformity. No lesions are appreciated. Cardiovascular: Regular rate and rhythm with a normal S1 and S2. No gallops, murmurs, or rubs. Normal PMI, no JVD. No pulse deficits. Respiratory: Lungs have equal breath sounds bilaterally, clear to auscultation and percussion. No rales, rhonchi or wheezes noted. No increased work of breathing, no retractions or nasal flaring. Abdomen/GI: Soft, non-tender, with normal bowel sounds. No distension or tympany. No guarding or rebound. No evidence of tenderness throughout. Back: No spinal tenderness. No costovertebral tenderness. Full range of motion. Skin: Warm, dry with normal turgor. Normal color with no rashes, no lesions, and no evidence of cellulitis. MS/ Extremity: Pulses equal, no cyanosis. Neurovascular intact. Full, normal range of motion. Neuro: Awake and alert, GCS 15, oriented to person, place, time, and situation. Cranial nerves II-XII grossly intact. Motor strength 5/5 in all extremities. Sensory grossly intact. Cerebellar exam normal. Normal gait. Psych: Awake, alert, with orientation to person, place and time. Behavior, mood, and affect are within normal limits. 10:16 ECG was reviewed by the Attending Physician. Vital Signs: 08:57 BP 175 / 83; Pulse 65; Resp 16; Temp 97.5; Pulse Ox 97% on R/A; Weight 135.17 kg; iw Height 5 ft. 1 in. ; Pain 5/10; 11:00 BP 99 / 58; Pulse 75; Resp 16; Pulse Ox 100% ; bp 12:00 BP 112 / 70 Supine; Pulse 65; Resp 16; Pulse Ox 100% ; bp 12:03 BP 137 / 90 Standing; Pulse 71; Resp 15; Pulse Ox 100% ; bp 08:57 Body Mass Index 56.31 (135.17 kg, 154.94 cm) iw 08:57 Pain Scale: Adult iw MDM: 09:09 Patient medically screened. denys 10:18 Differential diagnosis: cardiac arrhythmia, CVA, generalized weakness, hypovolemia, denys idiopathic dizziness, near-syncope, TIA, vertigo. Data reviewed: vital signs, nurses notes, lab test result(s), EKG, radiologic studies, CT scan, plain films. Consideration of Admission/Observation Escalation of care including admission/observation considered. I considered the following discharge prescriptions or medication management in the emergency department Medications were administered in the Emergency Department. See MAR. Independent interpretation of the following test(s) in the Emergency Department EKG: See my EKG interpretation above. Test considered but Not performed: MRI: no mri brain. Historians other than the Patient: pt well informed. Care significantly affected by the following chronic conditions: none. Counseling: I had a detailed discussion with the patient and/or guardian regarding the historical points, exam findings, and any diagnostic results supporting the discharge/admit diagnosis. ED course: improved symptoms. 09/02 09:11 Order name: Basic Metabolic Panel; Complete Time: 11:41 denys 09/02 09:11 Order name: CBC with Diff; Complete Time: 11:26 denys 09/02 09:11 Order name: LFT's; Complete Time: 11:41 denys 09/02 09:11 Order name: Magnesium; Complete Time: 11: 09/02 09:11 Order name: NT PRO-BNP; Complete Time: 11:41 09/02 09:11 Order name: PT-INR; Complete Time: :09/02 09:11 Order name: Troponin HS; Complete Time: :41 09/02 09:11 Order name: Urinalysis w/ reflexes; Complete Time: 11:26 09/02 09:11 Order name: PREGU; Complete Time: :09/02 09:11 Order name: Lipase; Complete Time: 11:09/02 09:11 Order name: XRAY Chest (1 view); Complete Time: 10:52 09/02 09:11 Order name: CT Head Brain wo Cont; Complete Time: :09/02 09:11 Order name: US Carotid Artery Bilateral; Complete Time: :09/02 09:11 Order name: EKG; Complete Time: 09:12 09/02 09:11 Order name: Cardiac monitoring; Complete Time: :09/02 09:11 Order name: EKG - Nurse/Tech; Complete Time: :09/02 09:11 Order name: IV Saline Lock; Complete Time: :09/02 09:11 Order name: Labs collected and sent; Complete Time: :09/02 09:11 Order name: O2 Per Protocol; Complete Time: :09/02 09:11 Order name: O2 Sat Monitoring; Complete Time: 09:20 09/02 11:44 Order name: Orthostatics; Complete Time: 12:03 [facility] EC:16 Rate is 63 beats/min. Rhythm is regular. QRS Tangent is Normal. ME interval is normal. QRS denys interval is normal. QT interval is normal. No Q waves. T waves are Normal. No ST changes noted. Clinical impression: Normal ECG and No evidence of ischemia. Interpreted by me. Reviewed by me. Administered Medications: 10:20 Drug: NS 0.9% IV 1000 ml IV at 1 bolus Per protocol; 1000 mL bolus Route: IV; Rate: 1 bp bolus; Site: right forearm; 12:03 Follow up: IV Status: Completed infusion; IV Intake: 1000ml bp 10:20 Drug: Ondansetron IVP 4 mg IVP once; over 2 minutes Route: IVP; Site: right forearm; bp 12:03 Follow up: Response: No adverse reaction bp 10:20 Drug: Meclizine PO 50 mg PO once Route: PO; bp 12:03 Follow up: Response: No adverse reaction bp Disposition Summary: 09/03/23 11:42 Discharge Ordered Notes: Location: Home denys Problem: new denys Symptoms: have improved denys Condition: Stable denys Diagnosis - Dizziness and giddiness denys - Other peripheral vertigo, bilateral denys Followup: denys - With: Private Physician - When: 2 - 3 days - Reason: Recheck today's complaints, Continuance of care, Re-evaluation by your physician Followup: denys - With: Valentín Wong MD - When: 2 - 3 days - Reason: Recheck today's complaints, Re-evaluation by your physician Discharge Instructions: - Discharge Summary Sheet denys - Benign Positional Vertigo denys - Dizziness denys - Vertigo denys - Vertigo, [id number] denys - Aspirin and Your Heart denys - Dizziness, [id number] denys Forms: - Medication Reconciliation Form denys - Antibiotic Education denys - Prescription Opioid Use denys - Patient Portal Instructions [facility] - Leadership Thank You Letter denys - Work release form bp Prescriptions: - ondansetron 4 mg Oral Tablet,disintegrating - take 1 tablet ORAL route every 6-8 hours for 5 days; 20 tablet; Refills: 0, [facility] Product Selection Permitted - Meclizine 25 mg Oral tablet - take 1 tablet ORAL route every 6 hours As needed; 30 tablet; Refills: 0, [facility] Product Selection Permitted Signatures: Dispatcher [employer] Varghese Tejeda MD MD cha Williams, Irene, RN RN iw Peltier, Brian, RN RN bp Corrections: (The following items were deleted from the chart) 09:12 09:12 BASIC METABOLIC PANEL+C.LAB.BRZ ordered. EDMS EDMS 09:12 09:12 CBC+H.LAB.BRZ ordered. EDMS EDMS 09:12 09:12 HEPATIC FUNCTION+C.LAB.BRZ ordered. EDMS EDMS 09:12 09:12 MAGNESIUM+C.LAB.BRZ ordered. EDMS EDMS 09:12 09:12 PROBNP+C.LAB.BRZ ordered. EDMS EDMS 09:12 09:12 PROTIME (+INR)+COAG.LAB.BRZ ordered. EDMS EDMS 09:12 09:12 Troponin High Sensitivity+C.LAB.BRZ ordered. EDMS EDMS 09:12 Urinalysis+U.LAB.BRZ ordered. EDMS EDMS 09:12 Test, Urine+UC.LAB.BRZ ordered. EDMS EDMS 09:12 LIPASE+C.LAB.BRZ ordered. EDMS EDMS
--- NOTE | 2023-09-03 11:42 | ER ---
Nurse's Notes [facility] Name: Samra Marina Age: 37 yrs Sex: Female : 1985 Arrival Date: 09/03/2023 Time: 08:50 Bed 19 Private MD: Diagnosis: Dizziness and giddiness;Other peripheral vertigo, bilateral Presentation: 09/02 08:57 Chief complaint: Patient states: when I woke up this morning everything was spinning iw and I was sweating and was nauseous. Coronavirus screen: At this time, the client does not indicate any symptoms associated with coronavirus-19. Ebola Screen: Patient negative for fever greater than or equal to 101.5 degrees Fahrenheit, and additional compatible Ebola Virus Disease symptoms Patient denies exposure to infectious person. Patient denies travel to an Ebola-affected area in the 21 days before illness onset. No symptoms or risks identified at this time. Initial Sepsis Screen: Does the patient meet any 2 criteria? No. Patient's initial sepsis screen is negative. Does the patient have a suspected source of infection? No. Patient's initial sepsis screen is negative. Risk Assessment: Do you want to hurt yourself or someone else? Patient reports no desire to harm self or others. Onset of symptoms was September 03, 2023. 08:57 Method Of Arrival: Ambulatory iw 08:57 Acuity: DARCIE 3 iw Triage Assessment: 09:00 General: Appears uncomfortable, obese, Behavior is cooperative, appropriate for age, bp anxious. Pain: Complains of pain in head. Neuro: Reports dizziness. GI: Reports nausea, vomiting. 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 - Infectious Disease History:: Denies. - Social history:: Smoking status: Patient denies any tobacco usage or history of. - Family history:: not pertinent. Screenin:00 [facility] ED Fall Risk Assessment (Adult) History of falling in the last 3 months, bp including since admission No falls in past 3 months (0 pts). Abuse screen: Denies threats or abuse. Denies injuries from another. Nutritional screening: No deficits noted. Tuberculosis screening: No symptoms or risk factors identified. Assessment: 09:00 General: Appears distressed, obese, Behavior is cooperative, appropriate for age, bp anxious. GI: Abdomen is obese. 11:00 Reassessment: Patient appears in no apparent distress at this time. Patient is alert, bp oriented x 3, equal unlabored respirations, skin warm/dry/pink. Vital Signs: 08:57 BP 175 / 83; Pulse 65; Resp 16; Temp 97.5; Pulse Ox 97% on R/A; Weight 135.17 kg; iw Height 5 ft. 1 in. ; Pain 5/10; 11:00 BP 99 / 58; Pulse 75; Resp 16; Pulse Ox 100% ; bp 12:00 BP 112 / 70 Supine; Pulse 65; Resp 16; Pulse Ox 100% ; bp 12:03 BP 137 / 90 Standing; Pulse 71; Resp 15; Pulse Ox 100% ; bp 08:57 Body Mass Index 56.31 (135.17 kg, 154.94 cm) iw 08:57 Pain Scale: Adult iw ED Course: 08:52 Patient arrived in ED. im 08:58 Triage completed. iw 08:58 Arm band placed on. iw 09:00 Patient has correct armband on for positive identification. bp 09:09 Varghese Wolf MD is Attending Physician. denys 09:20 Timoteo Cai, YEYO is Primary Nurse. bp 09:22 CT Head Brain wo Cont In Process Unspecified. EDMS 09:35 XRAY Chest (1 view) In Process Unspecified. EDMS 09:36 US Carotid Artery Bilateral In Process Unspecified. EDMS 10:20 Inserted saline lock: 22 gauge in right forearm, using aseptic technique. Blood bp collected. 11:41 Valentín Wong MD is Referral Physician. denys 12:05 No provider procedures requiring assistance completed. IV discontinued, intact, bp bleeding controlled, No redness/swelling at site. Pressure dressing applied. 12:06 Provided Education on: N/A. bp Administered Medications: 10:20 Drug: NS 0.9% IV 1000 ml IV at 1 bolus Per protocol; 1000 mL bolus Route: IV; Rate: 1 bp bolus; Site: right forearm; 12:03 Follow up: IV Status: Completed infusion; IV Intake: 1000ml bp 10:20 Drug: Ondansetron IVP 4 mg IVP once; over 2 minutes Route: IVP; Site: right forearm; bp 12:03 Follow up: Response: No adverse reaction bp 10:20 Drug: Meclizine PO 50 mg PO once Route: PO; bp 12:03 Follow up: Response: No adverse reaction bp Medication: 12:06 VIS not applicable for this client. bp Intake: 12:03 IV: 1000ml; Total: 1000ml. bp Outcome: 11:42 Discharge ordered by MD. mcfarlane 12:05 Discharged to home ambulatory, bp 12:05 Condition: stable 12:05 Discharge instructions given to patient, Instructed on discharge instructions, follow up and referral plans. medication usage, Demonstrated understanding of instructions, follow-up care, medications, Prescriptions given X 1, 12:24 Patient left the ED. bp Signatures: Dispatcher [employer] EDMS Varghese Wolf MD MD cha Williams, Irene RN RN iw Timoteo Cai RN RN Jaqueline Muñoz Corrections: (The following items were deleted from the chart) 08:59 08:57 BP 175 / 83; Pulse 65bpm; Resp 16bpm; Pulse Ox 97% RA; Temp 97.5F; iw iw 08:59 08:57 BP 175 / 83; Pulse 65bpm; Resp 16bpm; Pulse Ox 97% RA; Temp 97.5F; 135.17 kg; iw Height 5 ft. 1 in.; BMI: 56.3; iw
[2023-09-03 19:02] VITALS: BP 137/90; TEMP 97.5; O2SAT 100
== END 2023-09-03 12:24 | disposition home or self-care (01) ==
LOC: ER 08:50
DX: H81.393 Other peripheral vertigo, bilateral (principal)
CPT/HCPCS: 36415; 70450; 71045; 80048; 80076; 81001; 81025; 83690; 83735; 83880; 84484; 85025; 85610; 93005; 93880; 96361; 96374; 99284; J2405; J7030; J8597